=== PATIENT | female | born 1930 | race Caucasian/White ===

== ENCOUNTER 2017-09-08 15:33 | Inpatient (IN) | payer MEDICARE, OTHER ==
[~2017-09-08] VITALS: Ht 167.6 cm; Wt 61.2 kg
[2017-09-08 15:34] VITALS: BP 196/85
[2017-09-08 15:55] LABS: ABSOLUTE EOSINOPHILS 0.1 thou/uL (0.0-0.7); ABSOLUTE LYMPHOCYTES 1.8 thou/uL (0.8-5.3); ABSOLUTE MONOCYTES 0.7 thou/uL (0.0-1.2); ABSOLUTE NEUTROPHILS 4.3 thou/uL (1.6-8.1); BASOPHILS 0.7 %; EOSINOPHILS 0.9 %; HEMATOCRIT 41.9 % (37.0-47.0); LYMPHOCYTES 26.3 %; MCH 30.4 pg (26.0-34.0); MCHC 33.4 g/dL (28.0-37.0); MCV 90.9 fL (80.0-100.0); MONOCYTES 9.6 %; NUCLEATED RBCS 0 /100WBC; PLATELET COUNT* 196 thou/uL (150-400); POLYS 62.5 %; RBC 4.61 mil/uL (4.20-5.00); RDW-CV 14.6 % (10.5-14.5); WBC 6.9 thou/uL (4.0-11.0)
[2017-09-08 16:05] LABS: ANION GAP 6 mmol/L (7-16); BUN 20 mg/dL (7-18); CALCIUM 8.2 mg/dL (8.5-10.1); CHLORIDE 100 mmol/L (98-107); CO2 29 mmol/L (21-32); GLUCOSE 111 mg/dL (70-99); POTASSIUM 3.8 mmol/L (3.5-5.1); SODIUM 135 mmol/L (136-145)
[2017-09-08 16:12] LABS: ALBUMIN 3.5 g/dL (3.4-5.0); ALKALINE PHOSPHATASE 86 U/L (46-116); SGOT 26 U/L (15-37); SGPT 30 U/L (30-65); TOTAL BILIRUBIN 0.4 mg/dL (<0.1-1.0); TOTAL PROTEIN 7.3 g/dL (6.4-8.2); TROPONIN-I LEVEL <0.06 ng/mL (<0.06)
[2017-09-08 16:17] LABS: APTT 28.5 Seconds (25.0-31.3); PROTIME 9.9 Seconds (9.20-11.50)
[2017-09-08] MEDS ORDERED: ASPIRIN81 M2 PO (16:35)
[2017-09-08] MEDS ORDERED: IMDUR 30 MG TAB30 M1 PO (16:35)
[2017-09-08] MEDS ORDERED: CRESTOR10 MG PO (16:35)
[2017-09-08] MEDS ORDERED: COZAAR 25 MG TA25 M1 PO (16:35)
[2017-09-08] MEDS ORDERED: TOPROL XL25 MG PO (16:35)
[2017-09-08] MEDS ORDERED: TUMS PO (16:36)
[2017-09-08] MEDS ORDERED: BIOTIN1 M1 PO (16:36)
[2017-09-08] MEDS ORDERED: B-COMPLEX TABL0.4 MG PO (16:36)
[2017-09-08] MEDS ORDERED: FEMARA2.5 MG PO (16:36)
[2017-09-08 17:18] VITALS: BP 197/90
[2017-09-08 21:00] VITALS: BP 129/45
[2017-09-08 23:47] VITALS: BP 108/54
[2017-09-09 04:20] VITALS: BP 103/40
--- NOTE | 2017-09-09 07:47 | NUR ---
PATIENT ARRIVED ON FLOOR FROM PACU AT ABOUT 2039. PATIENT ADMISSION HISTORY AND ASSESSMENT WAS COMPLETED CHARTED. IV FLUIDS WERE STARTED AT 80 ML/HR. PATIENT WAS PLACED ON OXYGEN AT 2L PER NASAL CANNULA AFTER DESATTING TO 88% AFTER GIVEN IV DILAUDID FOR PAIN. PATIENT IS NOW 98-99% ON 2L PER NASAL CANNULA. PATIENT WAS GIVEN PAIN MEDICINE THREE TIMES THIS SHIFT. DRESSING TO RIGHT HIP REMAINS INTACT. FAMILY REMAINS AT BEDSIDE. WILL CONTINUE TO MONITOR.
[2017-09-09 07:59] LABS: HEMATOCRIT 27.4 % (37.0-47.0); HEMOGLOBIN 9.2 gm/dL (12.0-15.0); MCH 30.7 pg (26.0-34.0); MCHC 33.6 g/dL (28.0-37.0); MCV 91.5 fL (80.0-100.0); MPV 8.1 fl. (7.2-11.1); NUCLEATED RBCS 0 /100WBC; PLATELET COUNT* 141 thou/uL (150-400); RBC 2.99 mil/uL (4.20-5.00); RDW-CV 14.7 % (10.5-14.5); WBC 9.2 thou/uL (4.0-11.0)
[2017-09-09 08:10] VITALS: BP 108/51
[2017-09-09 08:13] LABS: CALCIUM 7.3 mg/dL (8.5-10.1); POTASSIUM 4.3 mmol/L (3.5-5.1)
[2017-09-09 08:43] LABS: ABSOLUTE LYMPHOCYTES 0.8 thou/uL (0.8-5.3); ABSOLUTE MONOCYTES 0.7 thou/uL (0.0-1.2); ABSOLUTE NEUTROPHILS 7.6 thou/uL (1.6-8.1); PLATELET ESTIMATE ADEQUATE
[2017-09-09 12:04] LABS: URINE BILIRUBIN NEGATIVE (Negative); URINE BLOOD 1+ (Negative); URINE CLARITY CLEAR; URINE COLOR YELLOW; URINE GLUCOSE-RANDOM NEGATIVE (Negative); URINE KETONES NEGATIVE (Negative); URINE LEUKOCYTES-REFLEX 1+ (Negative); URINE NITRITE-REFLEX NEGATIVE (Negative); URINE PROTEIN NEGATIVE (Negative); URINE UROBILINOGEN 0.2 E.U./dl (0.2-1.0)
[2017-09-09 12:06] VITALS: BP 120/40
[2017-09-09 12:15] LABS: CASTS None Seen /LPF (None Seen); CRYSTALS None Seen /LPF (None Seen); SQUAMOUS 0-3 Few /LPF (0-3); URINE RBC 3-10 Few /HPF (0-2)
[2017-09-09 12:16] LABS: BACTERIA-REFLEX None Seen /HPF (None Seen)
[2017-09-09 16:00] VITALS: BP 126/42
--- NOTE | 2017-09-09 18:25 | NUR ---
PATIENT HAS BEEN A/O X 4, MUCH MORE AWAKE AND ALERT THIS AFTERNOON. MEDICATED FOR RIGHT HIP PAIN WITH ORAL OXY IR AND HYDROCODONE WITH RELIEF. PATIENT TURNED EVERY 2 HOURS AND HEELS ELEVATED. SCDS IN PLACE. DRESSINGS TO RIGHT HIP INTACT. PATIENT'S CONTINUOUS SAT MONITOR DC'D AND I.S. GIVEN TO PATIENT AND ENCOURAGED. PATIENT'S APPETITE POOR, ENCOURAGED SUPPLEMENTS AND FOODS PATIENT PREFERS. PATIENT DANGLED ON SIDE OF BED THIS AFTERNOON FOR SHORT AMOUNT OF TIME. O2 REMAINS IN PLACE AT 2L/NC. BENITEZ REMAINS IN PLACE. IV FLUIDS TO BE SALINE LOCKED AFTER CURRENT BAG IS FINISHED. MULTIPLE FAMILY MEMBERS HERE TO VISIT. HOURLY ROUNDING COMPLETED, FALL PRECAUTIONS IN PLACE. CALL LIGHT WITHIN REACH. WILL CONTINUE WITH PLAN OF CARE.
[2017-09-09 19:47] VITALS: BP 120/54
[2017-09-10 04:10] LABS: ABSOLUTE EOSINOPHILS 0.1 thou/uL (0.0-0.7); ABSOLUTE LYMPHOCYTES 1.6 thou/uL (0.8-5.3); ABSOLUTE MONOCYTES 1.1 thou/uL (0.0-1.2); ABSOLUTE NEUTROPHILS 5.8 thou/uL (1.6-8.1); BASOPHILS 0.3 %; EOSINOPHILS 0.9 %; HEMATOCRIT 24.5 % (37.0-47.0); HEMOGLOBIN 8.3 gm/dL (12.0-15.0); LYMPHOCYTES 18.5 %; MCH 31.1 pg (26.0-34.0); MCHC 33.8 g/dL (28.0-37.0); MONOCYTES 12.5 %; MPV 8.3 fl. (7.2-11.1); NUCLEATED RBCS 0 /100WBC; PLATELET COUNT* 123 thou/uL (150-400); POLYS 67.8 %; RBC 2.67 mil/uL (4.20-5.00); RDW-CV 14.2 % (10.5-14.5); WBC 8.6 thou/uL (4.0-11.0)
[2017-09-10 04:30] LABS: ALBUMIN 2.4 g/dL (3.4-5.0); CALCIUM 7.5 mg/dL (8.5-10.1); CREATININE 0.7 mg/dL (0.6-1.3); POTASSIUM 4.5 mmol/L (3.5-5.1); TOTAL BILIRUBIN 0.7 mg/dL (<0.1-1.0); TOTAL PROTEIN 5.2 g/dL (6.4-8.2)
--- NOTE | 2017-09-10 06:22 | NUR ---
ASSESSMENT COMPLETE. PT SLEPT THROUGH THE NIGHT WITHOUT ANY CONCERNS. PRN PAIN MEDICATIONS GIVEN NEEDED WITH RELIEF REPORTED. PT IS VERY HARD OF HEARING. DRESSING TO RIGHT HIP/LEG C/D/I. PT TURNED Q2 FOR SKIN INTEGRITY. PT GIVEN MIRILAX AT HS PER REQUEST, NO BM DURING THE NIGHT. PT HAS BENITEZ IN PLACE. PT HAS IV IN RIGHT FOREARM, SALINE LOCKED. PT IS FALL RISK, BED ALARM ON. SEE ASSESSMENT AND VITALS FOR OTHER DETAILS. CALL LIGHT WITHIN REACH, WILL CONTINUE TO MONITOR
[2017-09-10 08:10] VITALS: BP 159/57
[2017-09-10 09:20] VITALS: BP 151/49
--- NOTE | 2017-09-10 09:45 | NUR ---
PATIENT DROWSY AND CONFUSED TO WHERE SHE IS THIS AM. PATIENT'S VITALS STABLE. DR ALBERT PAGED REGARDING CHANGE IN CONDITION. PATIENT'S DAUGHTER AT BEDSIDE. DR ALBERT RETURNED CALL AND ORDERS NOTED. UPDATED PATIENT'S FAMILY.
--- NOTE | 2017-09-10 10:37 | NUR ---
PATIENT TAKEN FOR CT OF HEAD AT THIS TIME. PAGED DR ALBERT TO GIVE RESULTS. AWAITING RETURN CALL.
--- NOTE | 2017-09-10 13:09 | EKG ---
[place] [address] ELECTROCARDIOGRAM REPORT Name: RAEGAN LEON Room: [address] ADM IN .R.#: [id number] Admission: 09/08/17 Attend Phys: Ravinder Holcomb MD Discharge: Date of : 34 Report #: [id number] THIS REPORT FOR: //name// [facility] ED Test Date: 2017-09-08 Test Time: 15:50:58 Pat Name: RAEGAN LEON Department: Room: [facility] Gender: F Sales Center Associate: Estephania ARCE : 1930 Requested By: Erasmo Shin Order Number: [id number] MD: Samuel Ferrari Measurements Intervals [place] Rate: 67 P: -46 IN: 177 QRS: 8 QRSD: 145 T: 121 QT: 460 QTc: 486 Interpretive Statements Sinus or ectopic atrial rhythm Ventricular premature complex Left bundle branch block Baseline wander in lead(s) II Compared to ECG 12/26/2007 08:20:48 Ventricular premature complex(es) now present Electronically Signed On 09-10-2017 13:09:22 UNPAID INTERN by Samuel Ferrari [email or web address] <ELECTRONICALLY SIGNED> By: Samuel Ferrari MD, FACC 09/10/17 1309 1550 1550 Samuel Ferrari MD, [facility] /EPI
--- NOTE | 2017-09-10 13:45 | NUR ---
PATIENT MORE AWAKE THAN EARLIER THIS AM. STILL HAS COMPLAINTS OF GENERALIZED PAIN. ATTEMPTED TO WORK WITH PHYSICAL THERAPY THIS AFTERNOON. PATIENT RESTING QUIETLY IN BED AT THIS TIME. WILL CONTINUE WITH PLAN OF CARE.
--- NOTE | 2017-09-10 14:05 | NUR ---
REPORT CALLED TO GUILHERME SPICER WHO WILL BE ASSUMING CARE OF PATIENT. PATIENT TO BE TRANSFERRED TO ROOM 116.
--- NOTE | 2017-09-10 15:10 | NUR ---
PATIENT TRANSFERRED TO ROOM 116 VIA BED AT THIS TIME WITH ALL BELONGINGS. PATIENT'S DAUGHTER ACCOMPANIED PATIENT TO NEW ROOM. PATIENT MORE AWAKE AT THIS TIME.
[2017-09-10 16:00] VITALS: BP 148/44
--- NOTE | 2017-09-10 17:58 | NUR ---
PATIENT ARRIVED TO UNIT AT 1500. ALERT AND ORIENTED X1. IS COMPLAINING OF PAIN AT THIS TIME. AGREE WITH PREVIOUS NURSES CHARTING.
--- NOTE | 2017-09-10 18:00 | NUR ---
ALERT AND ORIENTED X1. PAIN BEING MANAGED WITH PO PAIN MEDICATION. DENIES NAUSEA. IV IS PATENT AND INFUSING. ATTENDED THERAPIES THIS SHIFT. VSS ON ROOM AIR. HOURLY ROUNDS HAVE BEEN MAINTAINED SINCE ARRIVING ON UNIT. CALL LIGHT IS WITHIN REACH. DAUGHTER IS AT BEDSIDE. NURSING WILL CONTINUE TO MONITOR.
[2017-09-10 20:00] VITALS: BP 163/61
[2017-09-11] VITALS (7 sets, daily range): BP systolic 122–168; BP diastolic 45–68
[2017-09-11 05:29] LABS: ABSOLUTE MONOCYTES 1.1 thou/uL (0.0-1.2); ABSOLUTE NEUTROPHILS 8.2 thou/uL (1.6-8.1); BASOPHILS 0.2 %; EOSINOPHILS 0.1 %; HEMATOCRIT 20.9 % (37.0-47.0); HEMOGLOBIN 7.2 gm/dL (12.0-15.0); MCH 31.6 pg (26.0-34.0); MCHC 34.7 g/dL (28.0-37.0); MCV 91.2 fL (80.0-100.0); MONOCYTES 10.3 %; MPV 8.3 fl. (7.2-11.1); NUCLEATED RBCS 0 /100WBC; PLATELET COUNT* 117 thou/uL (150-400); POLYS 79.4 %; RBC 2.29 mil/uL (4.20-5.00); RDW-CV 13.8 % (10.5-14.5); WBC 10.3 thou/uL (4.0-11.0)
[2017-09-11 05:33] LABS: PREALBUMIN 10.9 mg/dL (18.0-35.7)
[2017-09-11 05:55] LABS: ALBUMIN 2.3 g/dL (3.4-5.0); CREATININE 0.5 mg/dL (0.6-1.3); MAGNESIUM 1.7 mg/dL (1.8-2.4); POTASSIUM 4.2 mmol/L (3.5-5.1); TOTAL BILIRUBIN 0.8 mg/dL (<0.1-1.0); TOTAL PROTEIN 5.3 g/dL (6.4-8.2)
--- NOTE | 2017-09-11 06:41 | NUR ---
PATIENT IS STILL SHOWING CONFUSION DURING SHIFT AND HAS BEEN RESTLESS AT NIGHT. VSS, ALTHOUGH BP IS ELEVATED. DAUGHTER IS AT BEDSIDE. ORAL PAIN MEDICATION HAS BEEN GIVEN PRN ORDERED FOR C/O PAIN AND CHARTED. IV IN RIGHT FOREARM-NS @ 70ML/HR. DRESSING TO RIGHT HIP IS C/D/I, SCDS' AND ZHEN HOSE IN PLACE. BENITEZ TO DEPENDENT DRAINAGE WITH CLEAR/YELLOW COLORED URINE OUTPUT. HGB AND HCT LOW AND DR. HOGUE NOTIFIED VIA YOUCALLMD THIS AM. NO NEW ORDERS AT THIS TIME. FALL PRECAUTIONS IN PLACE. HOURLY ROUNDS MADE. WILL CONTINUE WITH PLAN OF CARE AND NURSING TO MONITOR.
--- NOTE | 2017-09-11 11:48 | NUR ---
PT.UP IN RECLINER. VERY SLEEPY. LOOKS AT YOU BUT DOESN'T SAY ANYTHING. DAUGHTER, CODI, HERE. SHE SAID THEY ALL MAKE DECISIONS FOR THE PT. 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 PT.NODS HEAD ABOUT SNF. GAVE DAUGHTER A LIST OF SNFS THAT SHE CAN GO TO. SHE SAID SHE WILL CALL HER SISTERS, WELL HER DAD AND LET CM KNOW, WHICH ONE THEY CHOSE.
--- NOTE | 2017-09-11 13:13 | S ---
[place] [address] SURGICAL PATH RPT PROCEDURE Name: RAEGAN LEON Room: [address] IN M.R.#: [id number] Admission: 09/08/17 Date of : 34 Discharge: Report #: [id number] Path Case #: [id number] PATHOLOGY REPORT COLLECTION DATE: 09/08/2017 RECEIVED DATE: 09/10/2017 SUBMITTING PHYS: Erick Khan D.O. OTHER PHYS: Dr. Ravinder Key SPECIMEN(S) RECEIVED: A.Right femur reamings * * * * * * * * * * * * FINAL DIAGNOSIS: Right femur reamings: - Benign and viable cancellous bone fragments, skeletal muscle, blood and scant benign hematopoietic elements. (CHAPIS:mgr; 09/11/2017) PATHOLOGIST: Baljinder Cyr M.D. REPORT ELECTRONICALLY SIGNED BY: Baljinder Cyr M.D. DATE/TIME: 09/11/2017 13:10 * * * * * * * * * * * * GROSS PATHOLOGY: The specimen is received fresh, labeled "Raegan Tavarez, right femur reamings". Received is a moderate amount of blood coagulum admixed with curettings of light jarrell bone measuring 3.0 x 3.0 x 0.5 cm in aggregate dimensions. The specimen is submitted representatively in cassette A1, following decalcification, to include all bone curettings. (CAA; 09/10/2017) CLINICAL HISTORY: Fractured right hip INITIAL CPT CODE(S): A; 89450, 12640 Professional services performed by [facility] at [facility] [address] [place] [address] Technical services performed by [facility] at [address] [place] [address], [facility] [address] [address]. [address] [address] SURGICAL PATH RPT PROCEDURE Name: RAEGAN LEON Room: [address] IN [facility]#: [id number] Admission: 09/08/17 Date of : 34 Discharge: Report #: [id number] Path Case #: [id number] [facility] [address] [address] PHONE: [phone] DIRECTOR: Surjit Conklin M.D. * * * END OF REPORT * * *
--- NOTE | 2017-09-11 15:00 | NUR ---
HAD PUT IN A REHAB CONSULT ORDER. CM SPOKE WITH LATA. SHE SAID SHE WOULD REVIEW PT.AND CALL CM BACK. SPOKE AGAIN WITH CODI AND PT. SHE SAID THEY ALL CONCUR IF PT.CANNOT GO TO REHAB UNIT, THEY WOULD LIKE [facility]. REFERRAL FAXED TO [facility] [phone].
--- NOTE | 2017-09-11 18:20 | NUR ---
ALERT AND ORIENTED X4. UP WITH MAX ASSIST OF 2-3 WITH WALKER AND GAIT BELT. PAIN BEING MANAGED WITH PO PAIN MEDICATION. DENIES NAUSA. RECIEVE 1 UNIT OF BLOOD THIS EVENING. DRESSING IS C/D/I. VSS ON ROOM AIR. HOURLY ROUNDS HAVE BEEN MAINTAINED THROUGHOUT SHIFT. CALL LIGHT IS WITHIN REACH. NURSING WILL CONTINUE TO MONITOR.
--- NOTE | 2017-09-11 18:27 | NUR ---
RECEIVED CONSULT FOR POSSIBLE REHAB ADMISSION. CONSULT HAS BEEN ACKNOWLEDGED BY COLD PRESS LOADER AND DR. BULLOCK. PT WITH RIGHT HIP FX S/P NAILING. PT WITH POST OP ENCEPHALOAPATHY/CONFUSION. PT WORKING WITH PT/OT SHE IS MAX A TO DEPENDENT WITH OT AND MAX A TO MAX A X2 WITH PT. PT WITH DIFFICULTY FOLLOWING DIRECTIONS DUE TO CONFUSION. HAD BLOOD TRANSFUSION TODAY. WILL FOLLOW ALONG WITH PT TO SEE HOW SHE PROGRESSES WITH THERAPIES AND MEDICALLY TO DETERMINE IF PT WILL BE ABLE TO TOLERATE AND PARTICIPATE IN 3 HOURS OF THERAPY ONCE MEDICALLY STABLE. THANK YOU FOR THIS CONSULT.
[2017-09-11 19:24] LABS: HEMATOCRIT 24.3 % (37.0-47.0); HEMOGLOBIN 8.6 gm/dL (12.0-15.0)
[2017-09-12 04:38] VITALS: BP 154/58
--- NOTE | 2017-09-12 06:09 | NUR ---
PATIENT SLEPT WELL THROUGHOUT THE NIGHT. PAIN SEEMED TO BE WELL CONTROLLED WITH ORAL PAIN MEDICATION. PATIENT DID REMOVE DRESSING TO RIGHT HIP AND NEW MEPILEX DRESSING WITH SIVER WAS APPLIED TO SURGICAL SITE. VSS, ON RA AND AFEBRILE. ALTHOUGH BP ELEVATED. PATIENT STILL HAS SOME CONFUSION AT TIMES, BUT APPEARS TO BE MUCH MORE ALERT AND AWARE OF SURROUNDINGS. BENITEZ TO DEPENDENT DRAINAGE WITH CLEAR/YELLOW URINE OUTPUT. PATIENT'S DAUGHTER AT BEDSIDE. IV IN RIGHT WRIST-SL. FALL PRECAUTIONS IN PLACE. HOURLY ROUNDS MADE. WILL CONTINUE WITH PLAN OF CARE AND NURSING TO MONITOR.
--- NOTE | 2017-09-12 10:21 | NUR ---
CM SPOKE TO DANG, TANDEM MILL STICKER TO DISCUSS ABILITY TO ACCEPT PATIENT TO THE ACUTE INPATIENT REHAB UNIT. DANG INFORMS THAT IF THE PATIENT IS MORE ALERT AND ORIENTED TODAY AND IS ABLE TO PARICIPATE IN PT/OT SHE WILL BE ABLE TO TRNASFER TO INPATIENT REHAB LATER ON TODAY. CM WILL REMAIN AVAILABLE TO ASSIST AND FOLLOW NEEDED.
[2017-09-12 14:05] VITALS: BP 154/56
[2017-09-12 14:08] VITALS: BP 154/56
[2017-09-12] MEDS ORDERED: ENOXAPARIN30 MG/0.1 SUBQ (14:12)
[2017-09-12] MEDS ORDERED: MILK OF MA2400 MG/10 PO (14:13)
[2017-09-12] MEDS ORDERED: OXYCODONE HCL 55 MG PO (14:14)
[2017-09-12] MEDS ORDERED: TRAMADOL 50 MG50 MG PO (14:15)
[2017-09-12 14:16] VITALS: BP 154/56
[2017-09-12] MEDS ORDERED: COLACE100 MG PO (15:40)
[2017-09-12 18:34] VITALS: BP 154/56
--- NOTE | 2017-09-12 18:37 | NUR ---
PATIENT LEFT UNIT AT 1415. ALERT AND ORIENTED X4 AT THIS TIME. CONTINUES TO HAVE OCCASIONAL CONFUSION. PAIN BEING MANAGED WITH PO PAIN MEDICATION. IV DC'D. NAUSEA MANAGED WITH IV NAUSEA MEDICATION. ALL PERSONAL ITEMS LEFT WITH PATIENT. DISCHARGE INSTRUCTIONS SENT WITH PATIENT TO REHAB. VSS ON ROOM AIR. HOURLY ROUNDS HAVE BEEN MAINTAINED THROUGHOUT SHIFT. CALL LIGHT IS WITHIN REACH. NURSING WILL CONTINUE TO MONITOR.
--- NOTE | 2017-10-22 09:55 | OP ---
[address] [address] OPERATIVE REPORT Name: RAEGAN LEON Room: [address] IN M.R.#: [id number] Admission: 09/08/17 Attend Phys: Ravinder Holcomb MD Discharge: 09/12/17 Date of : 34 Report #: [id number] THIS REPORT FOR: //name// CC: Ravinder Key DATE OF SERVICE: 09/08/2017 PREOPERATIVE DIAGNOSES: 1. Right intertrochanteric femur fracture. 2. History of breast cancer. POSTOPERATIVE DIAGNOSES: 1. Right intertrochanteric femur fracture. 2. History of breast cancer. PROCEDURE: Closed reduction and cephalomedullary nailing of right intertrochanteric femur fracture. SURGEON: Erick Khan D.O. TRIM SAWYER: 1. Yassine Jeffrey DO 2. Bo Baird DO. ANESTHESIA: General. ANTIBIOTICS: Weight-appropriate dosing of Ancef IV preoperatively. ESTIMATED BLOOD LOSS: 150 mL. COMPLICATIONS: None. SPECIMENS: Femoral reamings from shaft and femoral intertrochanteric region, neck and head. DRAINS: None. CONDITION: The patient is stable to PACU. IMPLANTS: [place] gamma nail, 11 x 380 mm x 125 degree with 90 mm lag screw and 47.5 mm x 5 mm distal interlock screw. INDICATIONS FOR PROCEDURE: The patient is an 87-year-old female who presented to [facility] Emergency Department after a fall from standing height. She was at her house where she lives with her , their daughter [address] [place] [address] OPERATIVE REPORT Name: RAEGAN LEON Soo Room: [address] IN .R.#: [id number] Admission: 09/08/17 Attend Phys: Ravinder Holcomb MD Discharge: 09/12/17 Date of : 34 Report #: [id number] oftentimes stays with them, family members were over and the kids had toys there, she tripped over them and fell. She had immediate pain in her hip and inability to ambulate, ambulance was called and she was brought here. This unfortunately is her birthday, she is very hard of hearing, a lot of conversation takes place talking right at her ear level and also through coordinating with her daughter who seems to have an easier time relaying information to her that I needed. Her daughter is a nurse and is her medical power of commercial real estate attorney. She is having significant pain in her groin, only thing that helps is the medication she has received from the ER and not moving, any movement does produce pain. She rates the pain as 10/10 when that is worse. She denies any radiation, tingling or numbness. I asked if there was any prodromal pain, they said no. She is quite active. Her daughter says she walks around the house without an assistive device. In reviewing her medical chart and asking about her past medical condition, she does have a history of breast cancer and that we will likely be sending off a specimen to make sure that it is not a pathological fracture. She did have a mechanical fall explaining her hip fracture. We had a long conversation going over our recommendation for operative treatment, nonoperative management would involve prolonged bed rest. I would not recommend this do to sequela as I believe it would lead to significant functional limitations if not significantly adverse events from the prolonged bed rest. Since she is clearly an ambulator without assistive device, my recommendation would be for operative fixation of her right intertrochanteric femur fracture. The risks of the surgery include but are not limited to infection that could require surgical treatment, long-term antibiotics and their sequela of end-organ damage, C. difficile colitis, and resistance, wound healing complications, neurovascular injuries that could be permanent, limb and life-threatening, continuing of pain, worsening of pain, decreased function compared to pre-injury function, this could involve the loss of independent ambulation or loss of ability to live independently, malunion, nonunion, failure of bone, failure of implant could involve jayleen screw cut out. There is the possibility of need for further intervention or surgery for any reason and that include proximal femoral replacement, DVT, PE, NE, stroke, possible , anesthetic related complication will be addressed by the anesthesia team prior to surgery. There is also possibility of intangibles and unforeseen complications that would be addressed upon presentation. After answering any and all questions that her and her family had, they acknowledged and accepted the risks of surgery. They do wish to proceed. We obtained verbal and written consent. I also had her daughter who has power of commercial real estate attorney sign as well, the patient is quite hard of hearing. DESCRIPTION OF PROCEDURE: In the presence of the operative team members as well as family, I asked which side was correct, they confirmed the right and marked that extremity and everyone agreed. She was then transferred to the operative suite where we performed a briefing confirming correct patient, procedure, site, antibiotics and that all implants needed were present sterile. All members agreed. General anesthetic was administered. She was then transferred over to [address] [address] OPERATIVE REPORT Name: RAEGAN LEON Room: [address]#: [id number] Admission: 09/08/17 Attend Phys: Ravinder Holcomb MD Discharge: 09/12/17 Date of : 32 Report #: [id number] the operative [place] table. She was well padded and well secured to the table and it was used to aid in fracture reduction by performing traction, slight abduction and internal rotation and then gentle adduction. We brought in C-arm imaging. Fine tuned our reduction using the table. Once we confirmed our reduction on multiple planar images, we then sterilely prepped and draped the right lower extremity in usual fashion. We then performed an official timeout indicating correct patient, procedure, site and antibiotics. All members agreed. We used the C-arm to wolf our landmarks, 10 blade scalpel proximally through skin just through fascia, blunt dissection down to the greater trochanter. A guidewire was inserted and confirmed to be in appropriate position on AP and lateral and advanced. We reamed over this guidewire and confirmed on AP and lateral that our reamer was in the appropriate trajectory and guidewire in appropriate position. A long nail will be used and will be imperative to have an appropriate starting point, so that the vy would not be too anterior or posterior to cortex. We then inserted our ball-tipped guidewire, advanced this down to the superior pole of the patella and the size was measured to be 380 mm. We therefore, chose a 380 x 11 x 125 degree gamma nail. We only reamed to the isthmus, not going any further. We saved those reamings and placed them in a specimen cup to be sent to Pathology. We then inserted our nail. She is quite osteoporotic not only on x-rays but also when reaming to the bone, there is very little resistance. We therefore inserted the gamma nail over the guidewire. We removed the guidewire once we were in bone. We then advanced the C-arm down to the knee and in the lateral position. Once we could start getting it down into the aspect of the knee, we slowly advanced the gamma nail manually and with gentle taps with the mallet confirming that we were not causing any distraction or fracture on the lateral image and also on the AP image looking back and forth. Once we had well seated nail just to the superior aspect of the patella and appropriate position and we had not caused any iatrogenic fracture, we then brought C-arm back proximally. We then made an incision for our double sleeve for the lag screw, made sure this was flush on to bone, I inserted the guidewire and confirmed that the guidewire was in at appropriate position on the AP where it was low in the neck and center on the head; on the lateral was just slightly posterior in the femoral head and center on the neck. This was appropriate in position and our tip apex distance would be less than 25 mm. We then measured, drilled and placed the appropriately 90 mm lag screw. We then engaged the setscrew and backed off 1 quarter turn confirming that our set screw was fully engaged by trying to turn the lag screwdriver handle and we could not. At that point in time, we then removed all instrumentation externally. Saved final C-arm images proximally. Fracture reduction was excellent, hardware position was excellent. We then took the C-arm distally performed perfect nightmute and then placed scalpel through skin and then drilled and placed a 5 mm screw into the static interlocking slot. Saved those images both AP and lateral, confirming its appropriate position. All hardware was in position at that time, we dismissed C-arm, thoroughly irrigated the incisions with normal saline. Proximally, the incisions were closed with 0 Vicryl deep to reapproximate the fascia, 2-[address] [address] OPERATIVE REPORT Name: RAEGAN LEON Room: [address]#: [id number] Admission: 09/08/17 Attend Phys: Ravinder Holcomb MD Discharge: 09/12/17 Date of : 32 Report #: [id number] Monocryl buried deep subcutaneous and divina, distally the incision was closed with 2-0 Monocryl buried deep in subcutaneous. The distal incision was closed with 2-0 Monocryl buried deep and divina. We placed sterile dressings that involved the Mepilex AG dressing. At that point in time, we performed an operative debriefing where we confirmed the procedure as stated. No complications and that all counts were correct and final. Everyone agreed. She was successfully extubated and transferred off the operative table and taken to PACU in stable condition. POSTOPERATIVE COURSE AND EVALUATION: I updated her family that she was doing well and resting in PACU, went over the surgical images with them and I addressed any questions and concerns that they had. On my exam of her in the PACU area, again she is quite limited in her hearing. She was stable. She had palpable pedal pulse, right lower extremity. All compartments were soft. Dressings intact and she was wiggling her toes, plantar flexing and dorsiflexing her ankle and moving at the knee. She will be admitted, we will be following the reamings closely for pathology. DVT prophylaxis will be with Lovenox. Pain control will be switching to orals as soon as possible, therapy to begin as soon as possible as well and she will be weightbear as tolerated. <ELECTRONICALLY SIGNED> By: Erick Khan DO 10/22/17 0955 2056 [id number] Khan DO /carlos
--- NOTE | 2017-11-06 13:45 | CON ---
[address] [address] CONSULTATION Name: RAEGAN LEON Room: [address] IN M.R.#: [id number] Admission: 09/08/17 Attend Phys: Ravinder Holcomb MD Discharge: 09/12/17 Date of : 32 Report #: [id number] THIS REPORT FOR: //name// CC: Ravinder Key REASON FOR CONSULTATION: Evaluation and recommendations regarding post-acute rehabilitation in an 87-year-old female status post right hip fracture. It should be noted that consultation was acknowledged. The patient was screened and ultimately admitted to Acute Inpatient Rehabilitation and full consultation was not completed due to the timing of the admission. <ELECTRONICALLY SIGNED> By: Sally Cuevas DO 11/06/17 1345 1536 [id number] Cuevas DO /nt
== END 2017-09-12 14:28 | DRG 480 ==
LOC: M.ERS 15:33 → M.3W 16:27 → M.TBA-ER 16:27 → M.3W 20:48 → M.ORTHSURG 09-10 15:11
PROVIDERS: Family Medicine; Orthopaedic Surgery; ADMIT Internal Medicine
PROC: 0QS606Z Reposition Right Upper Femur with Intramedullary Internal Fixation Device, Open Approach (ICD-10-PCS; principal; 2017-09-08)
PROC: 30233N1 Transfusion of Nonautologous Red Blood Cells into Peripheral Vein, Percutaneous Approach (ICD-10-PCS; 2017-09-11)
DX: M80.051A Age-related osteoporosis with current pathological fracture, right femur, initial encounter for fracture (principal); G92 Toxic encephalopathy; E87.1 Hypo-osmolality and hyponatremia; D62 Acute posthemorrhagic anemia; I10 Essential (primary) hypertension; E78.5 Hyperlipidemia, unspecified; I25.10 Atherosclerotic heart disease of native coronary artery without angina pectoris; Z79.82 Long term (current) use of aspirin; Z79.899 Other long term (current) drug therapy; Z85.3 Personal history of malignant neoplasm of breast; Z87.891 Personal history of nicotine dependence; Z88.6 Allergy status to analgesic agent

== ENCOUNTER 2017-09-12 13:21 | Inpatient (IN) | payer MEDICARE, OTHER ==
[~2017-09-12] VITALS: Ht 165.1 cm; Wt 58.5 kg
[~2017-09-12 13:21] MED LIST: ASPIRIN81 M2 PO; B-COMPLEX TABL0.4 MG PO; BIOTIN1 M1 PO; COZAAR 25 MG TA25 M1 PO; CRESTOR10 MG PO; FEMARA2.5 MG PO; IMDUR 30 MG TAB30 M1 PO; TOPROL XL25 MG PO; TUMS PO
[2017-09-12] MEDS ORDERED: ENOXAPARIN30 MG/0.1 SUBQ (14:12)
[2017-09-12] MEDS ORDERED: MILK OF MA2400 MG/10 PO (14:13)
[2017-09-12] MEDS ORDERED: OXYCODONE HCL 55 MG PO (14:14)
[2017-09-12] MEDS ORDERED: TRAMADOL 50 MG50 MG PO (14:15)
[2017-09-12] MEDS ORDERED: COLACE100 MG PO (15:40)
--- NOTE | 2017-09-12 16:17 | NUR ---
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 TO BRING IN BATTERIES TOMORROW FOR HEARING AIDS.PT SITTING IN RECLINER WITH LEGS ELEVATED. PT DENIES PAIN AT PRESENT. DRESING TO RT. HIP INTACT WITH MIN SEROUS DRAINAGE NOTED. BENITEZ TO DD WITH CLEAR YELLOW URINE NOTED.PT IS PLESANT BUT FORGETFULL,EASILY REORIENTATED.
[2017-09-12 21:56] VITALS: BP 133/48
[2017-09-13 04:06] LABS: HEMATOCRIT 21.8 % (37.0-47.0); HEMOGLOBIN 7.5 gm/dL (12.0-15.0); MCH 32.1 pg (26.0-34.0); MCHC 34.6 g/dL (28.0-37.0); MCV 92.9 fL (80.0-100.0); MPV 8.1 fl. (7.2-11.1); RBC 2.35 mil/uL (4.20-5.00); RDW-CV 13.8 % (10.5-14.5); WBC 8.3 thou/uL (4.0-11.0)
[2017-09-13 04:20] LABS: CALCIUM 7.4 mg/dL (8.5-10.1); CREATININE 0.6 mg/dL (0.6-1.3); POTASSIUM 4.1 mmol/L (3.5-5.1)
--- NOTE | 2017-09-13 05:17 | NUR ---
ASSUMED CARES AT 1920. PT ALERT AND ORIENTED. PLEASANT BUT CAN BE FORGETFUL AND CONFUSED. VERY [place]. S/P RIGHT HIP FRACTURE. RIGHT HIP/LEG INCISION SITES X 2 ARE INTACT. WBAT RLE. RLE EDEMA. TAKES PILLS WHOLE WITHOUT ISSUES. TYLENOL AND TRAMADOL GIVEN FOR PAIN. MIRALAX GIVEN. BENITEZ CATHETER DD WINIFRED URINE. SLEPT WELL OTHERWISE. DID NOT GET OUT OF BED DURING THE NIGHT. DAUGHTER STAYED OVERNIGHT. CALL LIGHT IN REACH. BED ALARM ON.
[2017-09-13 07:50] VITALS: BP 153/55
--- NOTE | 2017-09-13 10:13 | NUR ---
Nutrition: Pt admitted to rehab s/p hip FX. H/o CAD, HTN, YOMBA SHOSHONE. Pt is forgetful. Eating 100% of Regular diet. Wt 135#. Albumin 2.3, prealb 9.5. Pt is at low risk. Will follow labs, protein weekly.
[2017-09-13 16:17] LABS: URINE BILIRUBIN NEGATIVE (Negative); URINE BLOOD 2+ (Negative); URINE CLARITY CLEAR; URINE COLOR YELLOW; URINE GLUCOSE-RANDOM NEGATIVE (Negative); URINE KETONES NEGATIVE (Negative); URINE PROTEIN NEGATIVE (Negative); URINE SPECIFIC GRAVITY 1.015 (1.005-1.030)
[2017-09-13 16:20] LABS: URINE LEUKOCYTES-REFLEX 3+ (Negative); URINE NITRITE-REFLEX POSITIVE (Negative)
[2017-09-13 16:23] LABS: BACTERIA-REFLEX >30 Many /HPF (None Seen); CASTS None Seen /LPF (None Seen); CRYSTALS None Seen /LPF (None Seen); MUCUS 0-3 Light strn/LPF (None Seen); SQUAMOUS 0-3 Few /LPF (0-3); URINE RBC 3-10 Few /HPF (0-2); URINE WBC-REFLEX >25 Many /HPF (0-5)
--- NOTE | 2017-09-13 16:29 | NUR ---
SW met with pt to complete initial assessment, introduce self, and SW role on rehab unit. Pt alert and oriented although sleepy. Pt dtr Irina was present. Pt has a dtr Meliza [phone] and a dtr Radha who are all 3 supportive. Pt has 7 grandkids and 19 great grandchildren. Pt lives at home with her who is on hopsice care due to kidney issues. Pt was independent prior to hospital stay, no DME, no history of HH or SNF. SW to continue to follow to assist with safe dc planning.
--- NOTE | 2017-09-13 16:59 | NUR ---
PT HAS AMBULATED WITH BATHROOM AND VOIDED ON COMMODE WITH US SENT TO LAB. PT AMBULATES WITH WALKER,GAITBELT AND 1 ASSIST WITH QUEING. DRESSING TO RT. HIP DRY AND INTACT. PT ALERT BUT FORGETFULL AND IS [place]. PRN FOR PAIN GIVEN WITH FAIR EFFCT. NARCOTICS CAUSE SLEEPINESS AND CONFUSION, TRAMADOL GIVEN X1 TODAY. DAUGHTER AT BEDSIDE AND IS HELPFULL. PT PROGRESSES TOWARDS GOALS AND HOURLY ROUNDING CONTINUES.
[2017-09-13 20:22] VITALS: BP 148/49
--- NOTE | 2017-09-13 22:39 | NUR ---
ASSUMED CARE AT 1930. PATIENT S/P RT HIP FX, ORIF WITH NAILING 09/08/17. WAS IN CHAIR AT BEGINNING OF SHIFT, ASSISTED WITH HS CARES. VOIDED PER TOILET. AMB WITH ONE ASSIST, GAIT BELT, WALKER, CUEING. NEEDS HELP SCOOTING UP IN BED. TURN SHEET USED TO ASSIST WITH PULLING HER UP IN BED. BLANKET ROLL PLACED BETWEEN LEGS TO DECREASE ROTATION AND HEELS OFFLOADED ON PILLOWS. REFUSES TO TURN TO SIDE. VERY STILLAGUAMISH BUT MAKES NEEDS KNOWN. DAUGHTER SPENDING THE NIGHT, ASKED THAT PATIENT GET TRAMADOL AT HS. PATIENT SLEEPING ON ROUND TO ASSESS EFFECTIVENESS. DSSGS TO RT HIP C/D/I. HOURLY ROUNDS CONTINUE. CALL LITE IN REACH. BED ALARM ON.
--- NOTE | 2017-09-14 05:39 | NUR ---
SLEPT MOST OF THE NIGHT EXCEPT TO VOID. SEE MAR FOR PAIN MEDS GIVEN. RETURNS TO SLEEP AFTER GOING TO TOILET. HAS NOT BEEN PULLING BRIEF OR PANTS DOWN FAR ENOUGH TO AVOID URINATING ON THEM WHEN SITING ON TOILET AND WAS INCONTINENT IN HER PAJAMAS AND TWO BRIEFS VOIDING ON FLOOR. PAJAMA BOTTOMS TAKEN OFF AND REPLACED WITH BRIEF AND PUT ON GOWN. SKIN CARE DONE. AMB WITH GAIT BELT, WALKER AND CUEING, BUT IS GETTING BETTER WITH NAVIGATING WALKER IN ROOM. NEEDS HELP GETTING BOTH LEGS INTO BED. BILAT HEELS OFF LOADED ON PILLOW. REFUSES TO TURN TO SIDE. DRESSINGS C/D/I. HOURLY ROUNDS CONTINUE. BED ALARM ON. CALL LITE IN REACH.
[2017-09-14 07:30] VITALS: BP 152/56
[2017-09-14 11:00] VITALS: BP 104/44
[2017-09-14 11:15] VITALS: BP 144/52
--- NOTE | 2017-09-14 16:03 | NUR ---
ASSUMMED CARE OF PT AT 0730, PT ALERT AND ORIENTED, PT TRANSFERS WITH MOD ASSIST OF 1, GB AND WALKER, NEEDS CUEING, WBAT TO RIGHT LEG, DRESSING DRY AND INTACT TO RIGHT LEG, PT BECAME DIZZY WHEN WORKING WITH OT THIS AM, BP 104/44, PT STATED SHE FELT LIGHT HEADED, NAUSEATED, PT RETURNED TO BED BP RECHECKED AND 144/52, PHYSICIAN INFORMED AND ORDER OBTAINED TO RECHECK HGB IN AM, PT WORKED WITH THERAPY AGAIN THIS PM WITH NO DIZZINESS REPORTED. PT COMPLAINED OF PAIN IN RIGHT LEG, MEDICATED PER ORDERS, TAKING FOOD AND FLUIDS WELL, VOID PER TOILET THIS SHIFT, PARTICIPATED IN ALL THERAPIES, HOURLY ROUINDING COMPLETED, ASSESSMENT COMPLETE, WILL CONTINUE TO MONITER.
[2017-09-14 19:04] VITALS: BP 141/50
--- NOTE | 2017-09-14 23:12 | NUR ---
ASSUMED CARE AT 1930. PATIENT S/P RT HIP FX WITH ORIF AND PINNING. WBAT. UP WITH ONE, GAIT BELT, WALKER. NEEDS HELP GETTING OPERATIVE LEG OUT OF BED AND BOTH LEGS INTO BED. AMB WITH SLOW GAIT, NO CUEING NEEDED. ABLE TO DO HYGIENE AND CLOTHING ADJUSTMENTS. WEARING PULLUP BECAUSE OF DISTANCE TO TOILET. VOIDS WINIFRED URINE. TAKES PILLS WHOLE WITH WATER. DRESSINGS TO RIGHT LEG/HIP C/D/I. PATIENT WAS PICKING AT ONE OF THE EDGES OF THE DRESSING, INSTRUCTED NOT TO DO SO. THIS DRESSING WAS REINFORCED WITH OPSITE ALONG THE EDGES LAST NIGHT. APPEARS IN LESS PAIN. DENIES LIGHTHEADNESS WHILE AMBULATING. HEELS OFF LOADED WITH PILLOWS. PREFERS TO SLEEP ON BACK. DAUGHTER SPENDING THE NIGHT. BED ALARM ON. CALL LITE IN REACH. HOURLY ROUNDING CONTINUES.
--- NOTE | 2017-09-15 05:34 | NUR ---
SLEPT ON AND OFF. UP TO VOID PER TOILET WITH ONE, GAIT BELT, WALKER. MEDICATED FOR PAIN TWICE WITH RELIEF. DRESSING STILL C/D/I. PREFERS TO LIE ON BACK BUT DID LIE ON LT SIDE FOR ABOUT [address] IN [address]. HEELS OFF LOADED. HOURLY ROUNDS CONTINUE. CALL LITE IN REACH. BED ALARM ON.
[2017-09-15 07:59] VITALS: BP 167/44
--- NOTE | 2017-09-15 15:38 | NUR ---
PT HAS RESTED IN BED AND SLEPT THIS AFTERNOON WITH DAUGHTER AT SIDE. PRN FOR PAIN GIVEN WITH GOOD EFFECT. DRESSING TO RT. HIP DRY AND INTACT. PT CALLS FOR ASSIST TO BATHROOM AND AMBULATES WITH GAITBELT, WALKER AND ASSIST OF 1. PT IS ALERT AND ORIENTATED AND HAS BILAT HEARING AIDS INPLACE. PT WEARS GLASSES AND HAS OWN TEETH. PT IS ABLE TO ADJUST CLOTHING AND CLEANSE SELF WITH SBA AND EXTRA TIME. PT CONTINENT OF B+B. PT CALLS FOR ASSIST NEEDED.PT CONTINUES TO PROGRESS TOWARDS GOALS AND HOURLY ROUNDING CONTINUES.
[2017-09-15 19:55] VITALS: BP 137/49
--- NOTE | 2017-09-15 23:22 | NUR ---
ASSUMED CARE AT 1930. PATIENT S/P CVA. UP WITH ONE, WBAT, GAIT BELT, WALKER. VOIDS PER TOILET. NEEDS HELP GETTING BOTH LEGS INTO BED. REQUESTED MIRILAX THIS EVENING IN ADDITION TO MORNING DOSE. TURNS WITH ASSIST, REQUESTS SLEEPING ONLY ON BACK, REFUSES TURNS. TAKES PILLS ONE AT A TIME WITH WATER WITHOUT DIFF. DID OWN CARES WITH HER HEARING AIDES. MEDICATED FOR PAIN WITH HS MEDS BUT COULDN'T GET COMFORTABLE, GIVEN APAP. SEE NOV. WAS OBSERVED LYING ON BACK WITH EYES CLOSED AT 2300 ROUNDS. DRESSINGS INTACT. DAUGHTER SPENDING THE NIGHT. HOURLY ROUNDS CONTINUE. BED ALARM ON. CALL LITE IN REACH.
--- NOTE | 2017-09-16 00:29 | NUR ---
ASSUMED CARE AT 1930. PATIENT S/P RT HIP FX WITH PINNING. UP WITH ONE, WBAT, GAIT BELT, WALKER. VOIDS PER TOILET. NEEDS HELP GETTING BOTH LEGS INTO BED. REQUSTED MIRILAX THIS EVEING IN ADDITION TO MORNING DOSE PRIOR. TURNS WITH ASSIST, REQUESTS SLEEPING ONLY ON BACK, REFUSES TURNS. TAKES PILLS ONE AT A TIME WITH WATER WITHOUT DIFF. DID OWN CARES WITH HER HEARING AIDES. MEDICATED FOR PAIN WITH HS MEDS BUT COULDN'T GET COMFORTABLE, LATER GIVEN APAP, SEE NOV. WAS OBSERVED LYING ON BACK WITH EYES CLOSED AT 2300 ROUNDS. DRESSINGS INTACT. DAUGHER SPENDING THE NIGHT. HOURLY ROUNDS CONTINUE, BED ALARM ON. CALL LITE IN REACH.
--- NOTE | 2017-09-16 06:14 | NUR ---
SLEPT MOST OF THE NIGHT AFTER ABOUT 2300 EXCEPT TO VOID. BRIEF HAS SLIGHT AMOUNT OF URINE, CHANGED. HAD LARGE BM THIS AM PER TOILET AND C/O PAIN, AND DIZZINESS. RETURNED TO BED, REQUESTED PAIN MED. THIS GIVEN, SEE MAR. GETTING BETTER AT POSITIONING HIPS IN BED, ESPECIALLY "BRIDGING" AFTER SHE GETS IN BUT NEEDS HELP GETTING HER LEGS INTO THE BED. GIVEN COLD WASH CLOTH ALSO. HOURLY ROUNDS CONTINUE. BED ALARM ON. CALL LITE IN REACH.
[2017-09-16 08:00] VITALS: BP 168/59
--- NOTE | 2017-09-16 17:49 | NUR ---
ASSUMMED CARE OF PT AT 0730, PT ALERT AND ORIENTED, PT TRANSFERS OUT OF BED WITH MOD ASSIST NEEDS HELP GETTING LEGS IN AND OUT OF BED, BUT TRANSFERS FROM CHAIR TO TOILET WITH MIN TO SBA, GB WALKER, PT COMPLAINS OF PAIN IN RIGHT HIP, MEDICATED PER ORDER, UPPER DRESSING TO HIP HAS LARGE AMOUNT GREENISH DRAINAGE, DRESSING CHANGED, INCISION INTACT MUCH BRUISING AROUND INCISION, TAKING FOOD AND FLUIDS WELL, PT AMBULATED TO BATHROOM X3 THIS SHIFT TO VOID, VOIDED IN LARGE AMOUNTS, NEW ORDER NOTED THIS PM TO CHECK RESIDUALS WILL START WITH NEXT VOID, FAMILY STAYS WITH PT MOST OF SHIFT, PT DID NOT HAVE THERAPIES TODAY, PT AND FAMILY REFUSED TO GO TO DININGROOM THIS SHIFT, HOURLY ROUNDING COMPLETED.ASSESSMENT COMPLETE, WILL CONTINUE TO MONITER.
[2017-09-16 20:16] VITALS: BP 118/39
[2017-09-17 04:02] VITALS: BP 147/53
--- NOTE | 2017-09-17 05:02 | NUR ---
ASSUMED PT CARE AT 1930. PT ALERT AND ORIENTED X4, POLITE AND COOPERATIVE WITH CARES. PT DAUGHTER AT BEDSIDE OVERNIGHT. PT UP WITH MOD ASSIST OF ONE, NEEDS ASSIST WITH GETTING LEGS IN AND OUT OF BED. TRANSFERS TO TOILET WITH MIN ASSIST, GAIT BELT AND WALKER. DRESSING TO RIGHT HIP C/D/I. LARGE BRUISE ON RIGHT HIP. UP TO BATHROOM TO VOID X4 THIS SHIFT. BLADDER SCANNED POST VOID, 98 CC AND 183 CC. PT TO BE STRAIGHT CATHED IF RESIDUAL IS OVER 500 CC. PT TAKES PILLS WHOLE WITH WATER WITHOUT DIFFICULTY. CALL LIGHT AND FREQUENTLY USED ITEMS WITHIN REACH. USES CALL LIGHT APPROPRIATELY. HOURLY ROUNDING IN PROGRESS, WILL CONTINUE TO MONITOR.
[2017-09-17 07:00] VITALS: BP 152/66
--- NOTE | 2017-09-17 09:57 | NUR ---
PT HAD REPORTED CHEST DISCOMFORT THIS AM WITH AWARE. EKG AND TRIPONIN LEVELS DONE AND ARE WML. DAUGHTER HERE, GRANDSON AND 2 GREAT GRAND CHILDREN IN ROOM. PT HAD BEEN UP TO RECLINER AND WAS ASSISTED TO BED WITH GAITBELT, WALKER AND MIN ASSIST OF 1. PRN TYLENOL GIVEN WITH FAIR EFFECT. PT DOES NOT WANT STRONGER PAIN MEDICATION DUE TO CAUSING SLEEPINESS. PT HAS VOIDED WELL THIS AM. PT IS ALERT AND ORIENTATED AND WEARS BILAT HEARING AIDS. WILL MONITOR FOR FURTHER CHEST PAIN.
--- NOTE | 2017-09-17 13:47 | EKG ---
[place] [address] ELECTROCARDIOGRAM REPORT Name: RAEGAN LEON Room: [address] ADM IN M.R.#: [id number] Admission: 09/12/17 Attend Phys: Sally Cuevas DO Discharge: Date of : 34 Report #: [id number] THIS REPORT FOR: //name// [facility] Test Date: 2017-09-17 Test Time: 09:33:03 Pat Name: RAEGAN EDWARD Department: Room: [address] Gender: F Medicare Compliance Auditor: 29 : 1930 Requested By: Tutu Rivas Order Number: [id number] Celsa MD: Justin Antunez Measurements Intervals [place] Rate: 78 P: 66 AL: 188 QRS: 46 QRSD: 130 T: 113 QT: 425 QTc: 485 Interpretive Statements Sinus rhythm Left bundle branch block Compared to ECG 09/08/2017 15:50:58 Ectopic atrial rhythm no longer present Ventricular premature complex(es) no longer present Electronically Signed On 09-17-2017 13:47:31 VICTORIAN LITERATURE PROFESSOR by Justin Antunez [email or web address] <ELECTRONICALLY SIGNED> By: Justin Antunez MD, [facility] 09/17/17 1347 0933 0933 Justin Antunez MD, [facility] /EPI
--- NOTE | 2017-09-17 15:25 | NUR ---
pt has participated with therapies and denies any chest pain. prn for rt.hip pain given with fair effect. ice pack placed to rt. hip with good effect. pt ambulates with walker,gaitbelt and min assist of 1. pt calls for assist to bathroom and voids well. pt encouraged to eat meals and drinks boost.pt educated on need for protein to promote healing of rt. hip.pt remains alert and orientated and continent of bowel and bladder. daughter stays with pt and pt continues to progress towards goals. hourly rounding continues.
[2017-09-17 20:55] VITALS: BP 143/52
--- NOTE | 2017-09-18 05:26 | NUR ---
ASSUMED CARES AT 1930. PT ALERT AND ORIENTED X 3. [place]. S/P RIGHT HIP NAILING. DRESSING TO SITE INTACT. WBAT RLE. C/O PAIN TO RIGHT LEG AND BACK. NO FURTHER CHEST PAIN. PAIN MEDS GIVEN PRN. MELATONIN GIVEN PER REQUEST FOR SLEEP. PT SLEPT LITTLE OFF AND ON. SHE IS A MIN ASSIST WITH GAIT BELT AND WALKER. UP TO BATHROOM. PT DOES OWN CARES. PULLUPS. DAUGHTER STAYED OVERNIGHT. USED CALL LIGHT APPROPRIATELY. BED ALARM ON.
[2017-09-18 08:12] VITALS: BP 183/55
--- NOTE | 2017-09-18 14:00 | NUR ---
SW met with pt and two of pt dtrs to review team conference summary. SW explained pt making progress towards goals; team reported pt walked 75 ft with FWW, CGA with toileting and toilet transfer, mod I with grooming, supervision with tub/shower transfer, set up UB dressing and min assist LB dressing, min assist with all cognitive ablilites except mod I with expression. SW discussed team noted pt barriers to be fatigue, pain, weakness, decreased flexibility, and mild anxiety. SW relayed that the plan is for pt to remain on rehab and continue therapies and for team to reassess pt length of stay during team conference next Saturday. Pt and pt family in agreement with plan. SW to continue to follow to assist with safe dc planning.
--- NOTE | 2017-09-18 16:57 | NUR ---
ASSUMED CARE AT 0730 PATIENT ALERT/ORIENTED, PAIN MEDS GIVEN THIS SHIFT WITH MILD RELIEF, PARTICIPATED IN ALL THERAPIES TODAY, BED/CHAIR ALARMS IN PLACE, CALL LIGHT IN REACH, HOURLY ROUNDING COMPLETED, TO DINING ROOM FOR DINNER. DRESSING TO RIGHT HIP C/D/I. CONTINUE WITH CURRENT PLAN OF CARE
[2017-09-18 19:30] VITALS: BP 111/49
--- NOTE | 2017-09-19 05:10 | NUR ---
RECEIVED CALL FROM DAUGHTER AT 0400. PT'S IN HOSPICE AND MAY PASS AWAY SOON. ASKING IF PT CAN HAVE PASS TO GO HOME. SPOKE WITH DAMON YEPEZ FOR HOME PASS DUE TO FAMILY EMERGENCY. TRAMADOL AND APAP GIVEN TO PT FOR RIGHT HIP PAIN. DAUGHTER ARRIVED AT 0500. PT TAKEN VIA W/C BY COMPUTER SYSTEMS DESIGN ANALYST AND WAS ASSISTED INTO CAR. DAUGHTER INFORMED TO CALL NURSE WITH ANY UPDATES.
--- NOTE | 2017-09-19 05:21 | NUR ---
ASSUMED CARES AT 1920. PT ALERT AND ORIENTED. PLEASANT. [place] APACHE. PAIN MEDS WERE GIVEN NEEDED. TAKES PILLS WITHOUT ISSUES. MELATONIN WAS GIVEN FOR SLEEP. SHE IS A MIN ASSIST WITH GAIT BELT AND WALKER. UP TO BATHROOM. PT DOES OWN CARES. WEARS PULLUPS. SLEPT WELL MOST OF THE NIGHT. USED CALL LIGHT APPROPRIATELY. BED ALARM ON.
--- NOTE | 2017-09-19 17:52 | NUR ---
PATIENT RETURNED FROM DAY AT 1615, TYLENOL GIVEN AND PATIENT PLACED IN BED, BED/CHAIR ALARMS IN PLACE, CALL LIGHT IN REACH, THERAPIES ON HOLD TODAY DUE TO PASS, WILL RESUME TOMORROW.
[2017-09-19 19:57] VITALS: BP 152/50
--- NOTE | 2017-09-20 05:01 | NUR ---
ASSUMED CARES AT 1920. PT IN BED. ALERT AND ORIENTED. PLEASANT BUT IS WORRIED ABOUT AND BEING HERE. GRANDDAUGHTER AT BEDSIDE. PAIN MEDS WERE GIVEN FOR RIGHT HIP PAIN. MELATONIN GIVEN TO HELP WITH SLEEP. SHE IS A MIN ASSIST WITH GAIT BELT AND WALKER. UP TO BATHROOM. DOES OWN CARES. DID HAVE EPISODE OF DIZZINESS WHEN WALKING BACK FROM BATHROOM. RESTING QUIELTY. SLEPT LITTLE OFF AND ON. CALL LIGHT IN REACH AND BED ALARM ON.
[2017-09-20 07:30] VITALS: BP 134/62
[2017-09-20 08:03] VITALS: BP 134/62
[2017-09-20 14:21] LABS: HEMATOCRIT 26.6 % (37.0-47.0); HEMOGLOBIN 8.9 gm/dL (12.0-15.0); MCH 32.4 pg (26.0-34.0); MCHC 33.4 g/dL (28.0-37.0); MCV 97.1 fL (80.0-100.0); MPV 6.7 fl. (7.2-11.1); RBC 2.74 mil/uL (4.20-5.00); RDW-CV 16.2 % (10.5-14.5); WBC 13.8 thou/uL (4.0-11.0)
[2017-09-20 14:42] LABS: ALBUMIN 2.5 g/dL (3.4-5.0); CALCIUM 8.4 mg/dL (8.5-10.1); CREATININE 0.8 mg/dL (0.6-1.3); POTASSIUM 4.2 mmol/L (3.5-5.1); TOTAL BILIRUBIN 1.2 mg/dL (<0.1-1.0); TOTAL PROTEIN 5.9 g/dL (6.4-8.2)
--- NOTE | 2017-09-20 16:42 | NUR ---
AM ASSESSMENT AND VITAL SIGNS COMPLETED DOCUMENTED. PT HAS PARTICIPATED IN ALL THERAPY SESSIONS TODAY. PT's VINOD HAS BEEN HERE AND IS INVOLVED IN HER CARE. PAIN HAS WELL CONTROLLED WITH PRN MEDICATIONS. DRESSING TO RIGHT HIP AND THIGH REMAIN C/D/I. PT DENIES ANY FURTHER DIFFICULTY WITH URINARY RETENTION. FALL PRECAUTIONS AND HOURLY ROUNDING CONTINUE.
--- NOTE | 2017-09-21 05:21 | NUR ---
ASSUMED PT CARE AT 1930. PT ALERT AND ORIENTED X4, POLITE AND COOPERATIVE WITH CARES. PRN PAIN MEDICATIONS GIVEN FOR RIGHT HIP PAIN. MELATONIN AT HS PER PT REQUEST. PT IS MIN ASSIST WITH GAIT BELT AND WALKER. UP TO BATHROOM SEVERAL TIMES OVERNIGHT TO VOID. PT DOES OWN PERICARES. DRESSING TO RIGHT HIP AND THIGH C/D/I. PT'S GRANDDAUGHTER STAYED IN PT ROOM OVERNIGHT. PER PT SHE SLEPT WELL OVERNIGHT. BED ALARM ON FOR SAFETY. PT USES CALL LIGHT APPROPRIATELY. CALL LIGHT AND FREQUENTLY USED ITEMS WITHIN REACH, HOURLY ROUNDING IN PROGESS, WILL CONTINUE TO MONITOR.
[2017-09-21 08:00] VITALS: BP 170/62
--- NOTE | 2017-09-21 11:44 | NUR ---
AM ASSESSMENT AND VITAL SIGNS COMPLETED AND DOCUMENTED. PT HAS BEEN PLEASANT AND COOPERATIVE, WORKS WITH THERAPY SCHEDULED. PT's FAMILY STAY WITH HER AT ALL TIMES BUT DON'T INTERFERE WITH PLAN OF CARE. PT HAS BEEN ALTERNATING OXY IR AND TRAMADOL WITH GOOD RELIEF OF PAIN. DRESSINGS TO RIGHT HIP AND THIGH REMAIN CLEAN, DRY AND INTACT. FALL PRECAUTIONS AND HOURLY ROUNDING CONTINUE.
[2017-09-21 20:29] VITALS: BP 126/41
--- NOTE | 2017-09-22 04:43 | NUR ---
ASSUMED PT CARE AT 1930. PT ALERT AND ORIENTED X4, POLITE AND COOPERATIVE WITH CARES. PRN PAIN MEDICATIONS GIVEN FOR RIGHT HIP PAIN. MELATONIN AT HS PER PT REQUEST. PT IS MIN ASSIST WITH GAIT BELT AND WALKER. UP TO BATHROOM OVERNIGHT TO VOID, STOOL X1 THIS SHIFT. PT DOES OWN PERICARES. DRESSING TO RIGHT HIP AND THIGH C/D/I. PT'S GRANDSON STAYED IN ROOM OVERNIGHT. PT SLEPT WELL OVERNIGHT. BED ALARM ON FOR SAFETY. PT USES CALL LIGHT APPROPRIATELY. CALL LIGHT AND FREQUENTLY USED ITEMS WITHIN REACH. HOURLY ROUNDING IN PROGRESS, WILL CONTINUE TO MONITOR.
[2017-09-22 08:22] VITALS: BP 168/57
--- NOTE | 2017-09-22 16:45 | NUR ---
AM ASSESSMENT AND VITAL SIGNS COMPLETED DOCUMENTED. PT HAS BEEN STAND BY ASSIST WITH AMBULATION, TOILETING, GROOMING AND DRESSING TODAY. PAIN IS WELL CONTROLLED WITH PRN MEDICATIONS AND PT's APPETITE IS GOOD. FAMILY REMAINS VERY INVOLVED WITH HER CARE AND ARE VERY SUPPORTIVE. FALL PRECAUTIONS AND HOURLY ROUNDING CONTINUE.
[2017-09-22 20:52] LABS: URINE BILIRUBIN NEGATIVE (Negative); URINE BLOOD NEGATIVE (Negative); URINE CLARITY CLEAR; URINE COLOR YELLOW; URINE GLUCOSE-RANDOM NEGATIVE (Negative); URINE KETONES NEGATIVE (Negative); URINE LEUKOCYTES NEGATIVE (Negative); URINE NITRITE NEGATIVE (Negative); URINE PROTEIN NEGATIVE (Negative); URINE SPECIFIC GRAVITY 1.015 (1.005-1.030); URINE UROBILINOGEN >= 8.0 E.U./dl (0.2-1.0)
[2017-09-22 21:37] VITALS: BP 131/46
[2017-09-23 04:30] LABS: ABSOLUTE BASOPHILS 0.1 thou/uL (0.0-0.2); ABSOLUTE EOSINOPHILS 0.2 thou/uL (0.0-0.7); ABSOLUTE LYMPHOCYTES 1.3 thou/uL (0.8-5.3); ABSOLUTE MONOCYTES 0.7 thou/uL (0.0-1.2); ABSOLUTE NEUTROPHILS 4.2 thou/uL (1.6-8.1); BASOPHILS 1.1 %; EOSINOPHILS 2.5 %; HEMATOCRIT 28.9 % (37.0-47.0); HEMOGLOBIN 9.7 gm/dL (12.0-15.0); LYMPHOCYTES 19.9 %; MCH 32.6 pg (26.0-34.0); MCHC 33.5 g/dL (28.0-37.0); MCV 97.3 fL (80.0-100.0); MONOCYTES 10.7 %; NUCLEATED RBCS 0 /100WBC; PLATELET COUNT* 389 thou/uL (150-400); POLYS 65.8 %; RBC 2.97 mil/uL (4.20-5.00); RDW-CV 18.4 % (10.5-14.5); WBC 6.4 thou/uL (4.0-11.0)
[2017-09-23 04:32] LABS: ALBUMIN 2.5 g/dL (3.4-5.0); CALCIUM 8.3 mg/dL (8.5-10.1); CREATININE 0.5 mg/dL (0.6-1.3); POTASSIUM 4.6 mmol/L (3.5-5.1); TOTAL BILIRUBIN 1.2 mg/dL (<0.1-1.0); TOTAL PROTEIN 5.4 g/dL (6.4-8.2)
--- NOTE | 2017-09-23 05:53 | NUR ---
ASSUMED CARES AT 1915. PT ALREADY IN BED. ALERT AND ORIENTED. PLEASANT. GRAND DAUGHTER AT BEDSIDE. C/O PAIN TO RIGHT HIP. PAIN MEDS GIVEN PRN. MELATONIN WAS GIVEN. WAS ABLE TO SLEEP FOR SHORT PERIOD. RIGHT HIP AND THIGH HAS MEPILEX THAT ARE INTACT. TAKES PILLS WITHOUT ISSUES. UP TO BATHROOM WITH GAIT BELT AND WALKER. DOES OWN CARES. NEEDS LIFTING ASSIST OF RIGHT LEG INTO BED. USED CALL LIGHT APPROPRIATELY. BED ALARM ON.
[2017-09-23 07:30] VITALS: BP 132/56
[2017-09-23 12:00] VITALS: BP 117/40
[2017-09-23 12:05] VITALS: BP 115/42
[2017-09-23 12:10] VITALS: BP 112/54
--- NOTE | 2017-09-23 17:01 | NUR ---
ASSUMMED CARE OF PT AT 0730, PT TRANSFERS WITH MOD ASSIST SHE NEEDS HELP GETTING LEGS IN AND OUT OF BED, TRANSFERS SBA FROM STAND TO CHAIR OR TOILET, PT TAKING FLUIDS WELL, NEEDS ENCOURAGEMENT TO EAT, PT STATES HAS POOR APETITE, DRESSING TO RIGHT HIP INTACT, MEDICATED FOR RIGHT HIP PAIN PER ORDER, WHEN WORKING WITH OT THIS AM PT BECAME DIZZY AND SLIGHTLY NAUSEATED, BP LOW, NO EMESIS, PT ALSO COMPLAINED OF BACK OF HEAD/NECK PAIN, PT RETURNED TO BED, BP IMPROVED AND PT STATED SHE FELT MUCH BETTER, ORTHO STATIC VS CHECKED WHEN PT GOT UP LATER, LAYING 117/40, SITTING 115/42, STAND 112/54, PHYSICIAN INFORMED ON ROUNDS OF BP, FAMILY CALLED THIS PM AND INFORMED STAFF AND PT THAT HER WAS NOT DOING WELL IN HOSPICE AND MAY BE DYING SOON, PT DID TALK TO ON PHONE AND SAID HER GOODBYE, FAMILY HERE THIS AFTERNOON, HOURLY ROUNDING COMPLETE, ASSESSMENT COMPLETE, WILL CONTINUE TO MONITER.
[2017-09-23 19:47] VITALS: BP 133/41
--- NOTE | 2017-09-24 05:06 | NUR ---
ASSUMED PT CARE AT 1930. PT ALERT AND ORIENTED X4, POLITE AND COOPERATIVE WITH CARES. GRANDDAUGHTER STAYED OVERNIGHT. PT QUIET BUT NOT SHOWING ANY OUTWARD SIGNS OF DISTRESS REGARDING THE PASSING OF HER SATURDAY AFTERNOON. PT C/O RIGHT HIP PAIN, GIVEN OXY IR AND MELATONIN AT HS. PT SLEPT WELL UNTIL UP TO VOID WITH GAIT BELT AND WALKER AT APPROX 0100. PT DOES OWN PERICARES. PT GIVEN PRN ATIVAN AND SLEPT UNTIL 0450. UP TO VOID, BACK TO BED C/O INTENSE RIGHT HIP PAIN. STOOL X1 THIS SHIFT. OXY IR GIVEN. ICE PACK PROVIDED. PT NEEDS LIFTING ASSIST TO GET HER RIGHT LEG INTO BED. USES CALL LIGHT APPROPRIATELY. CALL LIGHT AND FREQUENTLY USED ITEMS WITHIN REACH. HOURLY ROUNDING IN PROGRESS, WILL CONTINUE TO MONITOR.
[2017-09-24 07:37] VITALS: BP 186/61
--- NOTE | 2017-09-24 17:02 | NUR ---
ASSUMMED CARE OF PT AT 0730, PT ALERT AND ORIENTED , FORGETFUL, PT TRANSFERS WITH ASSIST OF 1 GB WALKER CUEING, NEEDS ASSIST TO GET BOTH LEGS IN AND OUT OF BED, PT NEEDS ENCOURAGEMENT TO DRINK AND EAT, PT STATES SHE HAS NO APETITE, PT COMPLAINS OF PAIN IN RIGHT HIP, STATES IT HURTS MORE TODAY, ORDER FOR HIP X/R NOTED, PT MEDICATED PER ORDER FOR PAIN, PARTICIPATED IN ALL THERAPIES, HOURLY ROUNDING COMPLETE, MANY VISITORS HERE THRUOUT DAY, PT TURNED ON SIDE WHEN IN BED, DRESSING TO RIGHT HIP DRY AND INTACT. VOIDS PER TOILET, ASSESSMENT COMPLETE, WILL CONTINUE TO MONITER.
[2017-09-24 19:48] VITALS: BP 114/67
--- NOTE | 2017-09-25 05:04 | NUR ---
ASSUMED PT CARE AT 1930. PT ALERT AND ORIENTED, POLITE AND COOPERATIVE WITH CARES. DAUGHTER STAYED OVERNIGHT. PT UP WITH ASSIST OF ONE, GAIT BELT AND WALKER TO VOID X3 OVERNIGHT. PRN PAIN MEDICATIONS GIVEN FOR RIGHT HIP PAIN. MELATONIN AND OXY IR AT HS, PT SLEPT WELL BETWEEN VOIDS. NO STOOL THIS SHIFT. PT NEEDS LIFTING ASSIST TO GET BOTH LEGS INTO BED. RIGHT LEG PAIN MORE INTENSE THAN PREVIOUS NIGHT, HOWEVER, RIGHT HIP AND PELVIS XRAY ON DAY SHIFT CONFIRM ALIGNMENT EXCELLENT. CALL LIGHT AND FREQUENTLY USED ITEMS WITHIN REACH. USES CALL LIGHT APPROPRIATELY. HOURLY ROUNDING IN PROGRESS, WILL CONTINUE TO MONITOR.
[2017-09-25 07:37] VITALS: BP 119/59
--- NOTE | 2017-09-25 16:20 | NUR ---
SW met with pt and pt family to review team conference summary. Plan for pt to dc home with family support at all times on Wednesday 09/27 with HH services to follow. Pt has needed DME and the DME recommendations. Pt and pt family in agreement with plans. Pt was thankful to be ready and safe to return home at this time because pt 's will be on Saturday. SW to continue to follow to arrange HH services and assist with finalizing safe dc plans.
--- NOTE | 2017-09-25 18:42 | NUR ---
ASSUMED CARE AT 0730 PATIENT ALERT/ORIENTED, PAIN MEDS GIVEN FOR RIGHT HIP PAIN WITH GOOD RELIEF. DRESSING TO RIGHT HIP CLEAN/DRY/INTACT. UP WITH ASSIST OF ONE AND WALKER/GAIT BELT, PARTICPATED IN ALL THERAPIES TODAY, CALL LIGHT IN PLACE, BED/CHAIR ALARMS IN PLACE, TO DINING ROOM FOR LUNCH, FAMILY AT BEDSIDE FOR DINNER, REFUSED TO GO DOWN. PLAN TO BE DISCHARGED HOME ON SATURDAY, CONTINUE WITH CURRENT PLAN OF CARE
[2017-09-25 20:00] VITALS: BP 123/48; BP 136/44
--- NOTE | 2017-09-26 01:33 | NUR ---
ASSUMED CARE @ 1942-09/25-SAT.AWAKE IN BED W/HOB UP.WANTS RIGHT LE UP ON A PILLOW.DONE.BED ALARM PUT ON @ 1942.WANTS 0NLY SIDERAILS X3 UP.SAT IN RECLINER @ 2009 AFTER BRP.CHAIR ALARM PUT ON @ 2009.PRN MIRALAX GIVEN W/ APPLE JUICE @ 2048.SEE PAIN MANAGEMENT @ 2049.PRN MELATONIN 5 MG ORAL GIVEN ALSO @ 2049. HOB UP.BED ALARM PUT ON @ 2057.DAUGHTER STAYING ALL NIGHT.ON HOURLY ROUNDS. 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
[2017-09-26 01:51] LABS: URINE BILIRUBIN NEGATIVE (Negative); URINE BLOOD NEGATIVE (Negative); URINE CLARITY CLEAR; URINE COLOR YELLOW; URINE GLUCOSE-RANDOM NEGATIVE (Negative); URINE KETONES NEGATIVE (Negative); URINE LEUKOCYTES-REFLEX NEGATIVE (Negative); URINE NITRITE-REFLEX NEGATIVE (Negative); URINE PROTEIN NEGATIVE (Negative); URINE SPECIFIC GRAVITY <= 1.005 (1.005-1.030)
[2017-09-26 05:33] LABS: HEMATOCRIT 31.5 % (37.0-47.0); HEMOGLOBIN 10.3 gm/dL (12.0-15.0); MCH 32.1 pg (26.0-34.0); MCHC 32.7 g/dL (28.0-37.0); MCV 98.2 fL (80.0-100.0); RBC 3.21 mil/uL (4.20-5.00); RDW-CV 18.3 % (10.5-14.5); WBC 4.9 thou/uL (4.0-11.0)
--- NOTE | 2017-09-26 05:46 | NUR ---
SLEEPING SINCE 2199.REFUSED HS SNACK.BRP W/ SBA X3.SEE VITAL SIGNS FOR ORTHOSTATIC BP'S TAKEN @ 1999.
[2017-09-26 06:04] LABS: CALCIUM 8.4 mg/dL (8.5-10.1); CREATININE 0.6 mg/dL (0.6-1.3); POTASSIUM 4.3 mmol/L (3.5-5.1)
[2017-09-26 09:19] VITALS: BP 157/52
[2017-09-26 12:43] VITALS: BP 125/50
--- NOTE | 2017-09-26 15:38 | NUR ---
ASSUMED CARE AT 0730, PATIENT ALERT/ORIENTED, PAIN MEDS GIVEN X2 THIS SHIFT WITH GOOD RESULTS. UP WITH ASSIST OF ONE AND WALKER/GAIT BELT, PARTICIPATED IN ALL THERAPIES TODAY, DID NOT GO TO DINING ROOM FOR MEALS, FAMILY AT BEDSIDE. HOURLY ROUNDING COMPLETED, BED/CHAIR ALARMS IN PLACE, CALL LIGHT IN REACH. LOW BLOOD PRESSURE THIS MORNING WHEN WORKING WITH OT, RETURNED TO ROOM AND RESTED IN BED, B/P RETURNED TO NORMAL, WILL CONTINUE TO MONITOR. TO BE DISCHARGED TOMORROW.
--- NOTE | 2017-09-26 16:41 | NUR ---
SW spoke with pt and pt dtr about pt dc tomorrow and discussed HH services and HH agency preference. Pt and pt dtr preference for [facility]. SW sent initial referral with orders to follow upon dc day and SW will continue to follow to assist with finalizing safe dc plan tomorrow.
[2017-09-26 19:58] VITALS: BP 94/37
[2017-09-27] VITALS (11 sets, daily range): BP systolic 84–148; BP diastolic 40–50
--- NOTE | 2017-09-27 01:16 | NUR ---
ASSUMED CARE @ 1921-09/26-.SITS IN RECLINER W/ CHAIR ALARM ALREADY ON.OLDEST DAUGHTER STAYING ALL NIGHT.BRP W/ SBA W/ WBAT RIGHT LE.WEARS PULL UPS.SBA FOR TOILETING.MIN ASSIST FOR BED TRANSFER.ASSIST LIFTING RIGHT LE INTO & OUT OF BED.HOB UP.HEELS OFF BED @ 2009.BED ALARM PUT ON @ 2009.SEE PAIN MANAGEMENT @ 2011 W/ PRN MELATONIN 5 MG ORAL.ON HOURLY ROUNDS.PRESCRIPTION CLERK LENSES DOING ODD HOUR ROUNDS.
--- NOTE | 2017-09-27 05:38 | NUR ---
SLEEPING SINCE 2099.BRP W/ SBA X3.REFUSED HS SNACK.SEE ORTHOSTATIC BP'S TAKEN @ 0100.FOR DISCHARGE TODAY-09/27-SATURDAY.
--- NOTE | 2017-09-27 10:56 | NUR ---
Pt to dc home with family today, Wednesday 09/27. [facility] to follow per family preference. [phone]. [facility] faxed referral and final orders/med list. [facility] ordered RW through [facility] to be delivered to pt room prior to pt dc.
[2017-09-27] MEDS ORDERED: ACETAMINOPHEN325 M3 PO (13:07)
[2017-09-27] MEDS ORDERED: MELATONIN5 M1 PO (13:11)
[2017-09-27] MEDS ORDERED: NORVASC5 MG PO (13:22)
--- NOTE | 2017-09-27 16:35 | NUR ---
ASSUMED CARE AT 0730. ALERT ORIENTED PLEASANT COOPERATIVE. HX OF RT. HIP FX S/P NAILING. TRANSFERS WITH SBA G BELT WALKER AND AMBULATES TO BR. WORKING O.T. AND TAKING A SHOWER STATED EXPERIENCING SOME PAIN CHEST . VS WERE 95/42 P 84 SITTING STATES SHE IS VERY FATIGUED AFTER SHOWER ALSO, NORVASC AND METOPROLOL WERE HELD DUE TO LOW BP. ADMINISTERED PRN PAIN MED 1 TAB FOR HIP PAIN WITH RELIEF STATED. VS WERE RECHECKED AT 1000 BP 122/[address] LEIGH AWARE AND WROTE PARAMETERS FOR MEDS. BP AT NOON 123/47 P 93 SITTING STANDING 84/44 P 105. HAS PARTICIPATED IN THERAPIES THROUGHOUT THE DAY. D/C ORDERS WERE WRITTEN AND GIVEN TO PT. AND DAUGHTER VERBALIZED UNDERSTANDING ALLOWED TIME FOR QUESTIONS. SCRIPTS GIVEN AND ALL BELONGINGS SENT HOME WITH PT. DISCHARGED WITH DAUGHTER PER W/C AND PRIVATE CAR TO HOME AT 1430.
--- NOTE | 2017-10-09 14:12 | H ---
[address] [address] HISTORY AND PHYSICAL Name: RAEGAN LEON Room: [address] IN M.R.#: [id number] Admission: 09/12/17 Attend Phys: Sally Cuevas DO Discharge: 09/27/17 Date of : 34 Report #: [id number] THIS REPORT FOR: //name// CC: Sally Halehen Yesi DATE OF SERVICE: 09/12/2017 HISTORY OF PRESENT ILLNESS: This is an 87-year-old female who had a fall from standing height at her home setting onto the right side, sustaining a right femur fracture. She did undergo closed reduction with cephalomedullary nailing on 09/08/2017. She did have some postoperative confusion and encephalopathy, but that is improving. She does have needs in physical and occupational therapy as well as speech and language pathology. There has been no significant change since preadmission screening. Previous level of function was independent with activities of daily living. Current level of function is minimum to moderate assistance of 1-2 depending on therapy, activity and time of day. She is dependent with her toileting. She has mild cognitive impairment including comprehension, social interaction, problem solving and memory. Her estimated length of stay is 12-14 days with discharge disposition to the home setting. She does have a spouse that can aid if needed. PAST MEDICAL HISTORY: Hypertension, hyperlipidemia, coronary artery disease, anemia with hemoglobin of 8.6, and . PAST SURGICAL HISTORY: ORIF of the left ankle and a tonsillectomy. ALLERGIES: No known drug allergies. SOCIAL HISTORY: Former tobacco smoker. REVIEW OF SYSTEMS: A 14-point review of systems is done and is negative except as mentioned in the HPI, specifically no fever, chest pain, shortness of breath, abdominal pain, or distention. PHYSICAL EXAMINATION: GENERAL: Alert, oriented, in no apparent distress. VITAL SIGNS: Reviewed and are stable. HEENT: Head atraumatic, normocephalic. Pupils are equal, round, and reactive. ABDOMEN: Soft, nontender, nondistended. NEUROLOGIC: Cranial nerves 2-12 are grossly intact with no focal neuro deficits, 5/5 strength in the bilateral upper and lower extremities. SKIN: Warm and dry. No rashes or lesions noted. ASSESSMENT: 1. Right[place] [address] HISTORY AND PHYSICAL Name: RAEGAN LEON Room: [address] IN [facility].#: [id number] Admission: 09/12/17 Attend Phys: Sally Cuevas DO Discharge: 09/27/17 Date of : 34 Report #: [id number] 2. Multiple medical comorbidities requiring daily medical care. PLAN: 1. Admission to inpatient rehabilitation. 2. PT, OT, speech, language, case management, nursing and HIMS to make evaluations and recommendations. 3. Plan of care is pending. 4. We will team her weekly. 5. Medications were reviewed, reconciled by myself and are available in the MAR. <ELECTRONICALLY SIGNED> By: Sally Cuevas DO 10/09/17 1412 1830 [id number] Cuevas DO /nt
--- NOTE | 2017-10-09 14:12 | D ---
[address] [address] DISCHARGE SUMMARY Name: RAEGAN LEON Room: [facility] IN M.R.#: [id number] Admission: 09/12/17 Attend Phys: Sally Cuevas DO Discharge: 09/27/17 Date of : 34 Report #: [id number] THIS REPORT FOR: //name// CC: Sally Cuevas Brad Key DISCHARGE DIAGNOSIS: Right hip fracture. DISCHARGE DISPOSITION: To the home setting with supportive family. The patient did approach goals prior to discharge, did maintain hip precautions. She will follow with home health, PT, OT and nursing. She will follow with her primary care physician within 1 week and her surgeon within 1-2 weeks. Notifications for physician were given. She will maintain a regular diet. Monitor weight gain and maintain hip precautions as well as fall precautions. MEDICATIONS: Reviewed and reconciled by myself and are available in the MAR. Prescriptions needed for discharge were given for one month's supply. DISCHARGE PHYSICAL EXAMINATION: GENERAL: Alert, oriented, in no apparent distress. VITAL SIGNS: Reviewed and are stable. HEENT: Head is atraumatic and normocephalic. Pupils are equal, round, reactive. ABDOMEN: Soft, nontender, nondistended. NEUROLOGIC: Cranial nerves 2-12 are grossly intact. No focal neuro deficits, 5/5 strength in the bilateral upper and lower extremities. SKIN: Warm and dry. No rashes or lesions noted. <ELECTRONICALLY SIGNED> By: Sally Cuevas DO 10/09/17 1412 1301 [id number] Cuevas DO /nt
--- NOTE | 2017-10-09 14:12 | PLAN ---
[address] [address] REHAB UNIT PLAN OF CARE Name: RAEGAN LEON Room: [address] IN M.R.#: [id number] Admission: 09/12/17 Attend Phys: Sally Cuevas DO Discharge: 09/27/17 Date of : 32 Report #: [id number] THIS REPORT FOR: //name// CC: Sally Key OVERALL PLAN OF CARE This is an 87-year-old female, status post acute hospitalization beginning on 09/08/2017 after tripping and falling at home from a standing height. She did sustain a right hip fracture and underwent closed reduction and cephalomedullary nailing on the . She did have some postoperative confusion and encephalopathy that has been improving. She has needs in physical and occupational therapy as well as mild cognitive impairment with comprehension, expression, social interaction and problem solving. MEDICAL PROGNOSIS: Good. REHABILITATION PROGNOSIS: Good. Estimated length of stay is 14-16 days with discharge disposition to the home setting with supportive family. Previous level of function was independent with activities of daily living. Current level of function is [id number] assistance of 1-2 depending on therapy, activity and time of day. She is dependent for toileting at this time. Physical therapy will see the patient 60-90 minutes per day, 5 days per week, working on upper and lower strength, balance, coordination, navigation. Occupational therapy will work with the patient 60-90 minutes per day, 5 days per week, working on upper and lower body strength, balance, coordination, navigation, bathing, dressing and toileting. Speech language pathology will work with the patient 30-90 minutes per day, 5 days per week, working on cognitive impairment, memory, social interaction and expression. This is an overall plan of care, may change from time to time. We will team weekly and make changes to plan of care as needed. <ELECTRONICALLY SIGNED> By: Sally Cuevas DO 10/09/17 1412 1825 [id number] Cuevas DO /nt
== END 2017-09-27 14:30 | disposition home health service (06) | DRG 535 ==
LOC: M.REH 13:21
PROVIDERS: Internal Medicine; ADMIT Physical Medicine & Rehabilitation
DX: S72.141A Displaced intertrochanteric fracture of right femur, initial encounter for closed fracture (principal); G93.40 Encephalopathy, unspecified; E87.1 Hypo-osmolality and hyponatremia; D62 Acute posthemorrhagic anemia; N39.0 Urinary tract infection, site not specified; R41.0 Disorientation, unspecified; G31.84 Mild cognitive impairment of uncertain or unknown etiology; I10 Essential (primary) hypertension; E78.5 Hyperlipidemia, unspecified; I25.10 Atherosclerotic heart disease of native coronary artery without angina pectoris; R07.9 Chest pain, unspecified; K59.00 Constipation, unspecified; M81.0 Age-related osteoporosis without current pathological fracture; R26.9 Unspecified abnormalities of gait and mobility; D72.829 Elevated white blood cell count, unspecified; W17.89XA Other fall from one level to another, initial encounter; Y93.89 Activity, other specified; Y92.098 Other place in other non-institutional residence as the place of occurrence of the external cause; Y99.8 Other external cause status; Z87.891 Personal history of nicotine dependence; Z88.6 Allergy status to analgesic agent; Z90.12 Acquired absence of left breast and nipple; Z79.82 Long term (current) use of aspirin; Z79.899 Other long term (current) drug therapy

== ENCOUNTER 2019-10-23 10:18 | Inpatient (IN) | payer MEDICARE, OTHER ==
[~2019-10-23] VITALS: Ht 167.6 cm; Wt 59.4 kg
[~2019-10-23 10:18] MED LIST changes: +ACETAMINOPHEN325 M3 PO; +COLACE100 MG PO; +ENOXAPARIN30 MG/0.1 SUBQ; +MELATONIN5 M1 PO; +MILK OF MA2400 MG/10 PO; +NORVASC5 MG PO; +OXYCODONE HCL 55 MG PO; +TRAMADOL 50 MG50 MG PO
[2019-10-23 10:25] VITALS: BP 111/34
[2019-10-23 10:44] LABS: ABSOLUTE BASOPHILS 0.1 thou/uL (0.0-0.2); ABSOLUTE LYMPHOCYTES 1.4 thou/uL (0.8-5.3); ABSOLUTE MONOCYTES 0.9 thou/uL (0.0-1.2); ABSOLUTE NEUTROPHILS 4.7 thou/uL (1.6-8.1); BASOPHILS 0.9 %; EOSINOPHILS 0.6 %; HEMATOCRIT 40.5 % (37.0-47.0); HEMOGLOBIN 13.8 gm/dL (12.0-15.0); LYMPHOCYTES 19.8 %; MCHC 34.1 g/dL (28.0-37.0); MONOCYTES 12.9 %; MPV 7.9 fl. (7.2-11.1); NUCLEATED RBCS 0 /100WBC; PLATELET COUNT* 214 thou/uL (150-400); POLYS 65.8 %; RBC 4.45 mil/uL (4.20-5.00); RDW-CV 13.8 % (10.5-14.5); WBC 7.2 thou/uL (4.0-11.0)
[2019-10-23 10:53] LABS: CALCIUM 8.8 mg/dL (8.5-10.1); POTASSIUM 4.8 mmol/L (3.5-5.1)
[2019-10-23 10:58] LABS: ALBUMIN 3.3 g/dL (3.4-5.0); TOTAL BILIRUBIN 0.7 mg/dL (<0.1-1.0); TOTAL PROTEIN 7.1 g/dL (6.4-8.2)
--- NOTE | 2019-10-23 14:48 | NUR ---
ECHO COMPLETED AT BEDSIDE
--- NOTE | 2019-10-23 15:49 | 2DMMODE ---
[place] [address] 2 D/M-MODE ECHOCARDIOGRAM Name: RAEGAN LEON Room: [place] [address] ADM IN .R.#: [id number] Admission: 10/23/19 Attend Phys: [place] Discharge: Date of : 34 Date of Service: 10/23/19 1548 Report #: [id number] THIS REPORT FOR: cc: Brad Key MD,Brad Ferrari,Samuel Crawley MD [facility] ~ APPROVED REPORT Study performed: 10/23/2019 14:41:27 EXAM: Comprehensive 2D, Doppler, and color-flow Echocardiogram Patient Location: In-Patient Room #: er Status: routine BSA: 1.69 HR: 63 bpm BP: 141/55 mmHg Rhythm: NSR Other Information Study Quality: Good Indications Murmur 2D Dimensions IVSd: 13.50 (7-11mm) LVOT Diam: 19.90 (18-24mm) LVDd: 30.83 mm PWd: 8.21 (7-11mm) Ascending Ao: 24.06 (22-36mm) LVDs: 22.00 (25-40mm) Aortic Root: 28.97 mm Volumes Left Atrial Volume (Systole) LA ESV Index: 36.50 mL/m2 Aortic Valve AoV Peak Billy.: 1.43 m/s AO Peak Gr.: 8.24 mmHg LVOT Max P.96 mmHg AO Mean Gr.: 5.35 mmHg LVOT Mean P.28 mmHg LVOT Max V: 1.32 m/s AO V2 VTI: 31.01 cm LVOT Mean V: 0.98 m/s KENROY (VTI): 2.90 cm2 LVOT V1 VTI: 28.90 [place] [address] 2 D/M-MODE ECHOCARDIOGRAM Name: RAEGAN LEON Room: [address] IN [facility]#: [id number] Admission: 10/23/19 Attend Phys: [place] Discharge: Date of : 32 Date of Service: 10/23/19 1548 Report #: [id number] Mitral Valve MV Mean Gr.: 2.73 mmHg E/A Ratio: 0.51 MV Decel. Time: 355.36 ms MV E Max Billy.: 0.61 m/s MV PHT: 103.06 ms MVA (PHT): 2.13 cm2 TDI E/Lateral E': 12.20 E/Medial E': 10.17 Medial E' Billy.: 0.06 m/s Lateral E' Billy.: 0.05 m/s Pulmonary Valve PV Peak Billy.: 1.06 m/s PV Peak Gr.: 4.50 mmHg Tricuspid Valve RAP Estimate: 5.00 mmHg TR Peak Gr.: 23.27 mmHg RVSP: 28.00 mmHg PA Pressure: 28.00 mmHg Left Ventricle The left ventricle is normal size. There is normal LV segmental wall motion. Mild concentric left ventricular hypertrophy. Left ventricular systolic function is normal. The left ventricular ejection fraction is within the normal range. LVEF is 65-70%. Grade I - abnormal relaxation pattern. Right Ventricle The right ventricle is normal size. The right ventricular systolic function is normal. Atria Left atrium is mildly dilated. The right atrium size is normal. Aortic Valve Moderate aortic valve sclerosis. Trace aortic regurgitation. There is no aortic valvular stenosis. Mitral Valve The mitral valve is normal in structure. There is no mitral valve regurgitation noted. No evidence of mitral valve stenosis. Tricuspid Valve The tricuspid valve is normal in structure. Mild tricuspid regurgitation. estimated pa pressure 30 [place] [address] 2 D/M-MODE ECHOCARDIOGRAM Name: RAEGAN LEON Room: [address] IN [facility]#: [id number] Admission: 10/23/19 Attend Phys: [place] Discharge: Date of : 34 Date of Service: 10/23/19 1548 Report #: [id number] Pulmonic Valve The pulmonary valve is normal in structure. Trace pulmonic regurgitation. Great Vessels The aortic root is normal in size. IVC is normal in size and collapses >50% with inspiration. Pericardium There is no pericardial effusion. <Conclusion> Mild concentric left ventricular hypertrophy. LVEF is 65-70%. Left atrium is mildly dilated. Moderate aortic valve sclerosis. <ELECTRONICALLY SIGNED> By: Samuel Ferrari MD, [facility] 10/23/19 1548 1548 1548 Samuel Ferrari MD, FACC /INF
--- NOTE | 2019-10-23 16:40 | NUR ---
ER ADMIT TO 219 TELEPHON REPORT GIVEN PRIOR TO ARRIVAL PATIENT TO VIA CART ASSIST OF 1 TO BED ORIENTED TO AND CALL LIGHT INSTRUCTED NOT TO GET UP WITHOUT ASSIST BED ALALRM SET FAMILY AT BEDSIDE PATIENT ADMIT TO R KNEE PAIN AT 11/23 BUT REFUSED PAIN MEDICATION AT THIS TIME WILL CONTINUE TO MONITOR
[2019-10-23 16:45] VITALS: BP 121/84
[2019-10-23 16:47] VITALS: BP 124/69
[2019-10-23 20:00] VITALS: BP 89/45
[2019-10-23 23:47] VITALS: BP 89/45
[2019-10-24 04:04] VITALS: BP 168/57
[2019-10-24 04:57] LABS: HEMATOCRIT 40.4 % (37.0-47.0); HEMOGLOBIN 13.6 gm/dL (12.0-15.0); MCH 30.9 pg (26.0-34.0); MCHC 33.6 g/dL (28.0-37.0); MCV 91.9 fL (80.0-100.0); MPV 8.2 fl. (7.2-11.1); RBC 4.4 mil/uL (4.20-5.00); WBC 5.5 thou/uL (4.0-11.0)
[2019-10-24 05:15] LABS: ANION GAP 8 mmol/L (7-16); BUN 15 mg/dL (7-18); CHLORIDE 104 mmol/L (98-107); CHOLESTEROL 129 mg/dL (<200); CO2 27 mmol/L (21-32); CREATININE 0.7 mg/dL (0.6-1.3); GLUCOSE 94 mg/dL (70-99); HDL CHOLESTEROL 51 mg/dL (>40); LDL CHOLESTEROL 67 mg/dL (<100); POTASSIUM 4.1 mmol/L (3.5-5.1); SODIUM 139 mmol/L (136-145); TC:HDL 2.5 Ratio (Not establshd); TRIGLYCERIDE 57 mg/dL (<150); TROPONIN-I LEVEL <0.06 ng/mL (<0.06); VLDL 11 mg/dL (<40)
[2019-10-24 05:18] LABS: SERUM ASSESSMENT CLEAR
[2019-10-24 08:00] VITALS: BP 107/85
--- NOTE | 2019-10-24 08:30 | NUR ---
ASSUMED PATIENT CARE AT 1900. ASSESSMENT COMPLETED CHARTED. 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 HOURLY ROUNDING IN PLACE FOR PATIENT SAFETY. CLWR.
[2019-10-24 12:15] VITALS: BP 137/65
--- NOTE | 2019-10-24 12:18 | NUR ---
.ASSUMED CARE OF PATIENT THIS AM AT 0730. PATIENT IS ALERT AND ORIENTED X 4. SHE DENIES PAIN AND DISCOMFORT. DR THOMAS IN TO ROUND AND MEDICATION CHANGES MADE. TELE SHOWS SR WITH PVCS AND A BBB. PATIENT IS TAKING HER DIET WELL. PATIENT IS ANTICIPATING DISCHARGE TODAY. SHE REFUSED HER ORDERED MEDICATIONS SHE SAYS THAT SHE TAKES THEM AT NIGHT WHEN SHE IS AT HOME. WILL CONTINUE TO MONITOR AT THIS TIME. NO FALLS OR INJURY
--- NOTE | 2019-10-24 13:19 | CON ---
[address] [address] CONSULTATION Name: MACHO LEONJL Vann Room: [address] IN M.Ap.#: [id number] Admission: 10/23/19 Attend Phys: Urbano Reina, Discharge: Date of : 32 Report #: [id number] THIS REPORT FOR: //name// cc: Brad Key MD, Stephen R. MD ~ THIS REPORT FOR: //name// CC: Brad Reina DATE OF SERVICE: 10/23/2019 CARDIOLOGY CONSULTATION HISTORY OF PRESENT ILLNESS: The patient is an 89-year-old single white female who I was asked to see in the hospital today after she had a syncopal spell. The history is obtained from the old records, the patient and her daughter who is present. The patient apparently has a history of coronary artery disease. According to the daughter, she had a heart catheterization at [facility] years ago and was found to have coronary artery disease that was not amenable to stenting. She currently is followed by a tube trailer filler at [facility]. She has had a remote history of syncope. She stays fairly active at this time. She was last here at [facility] in 09/2017, 2 years ago when she had a hip fracture requiring surgery. She was doing well until yesterday. She was at a store when she went to bathroom. When she came out of the bathroom, she felt lightheaded and had a brief loss of consciousness. She was held up by a family member. She had another brief loss of consciousness and laid down ground. She was placed in a wheelchair and sent home. However, the family decided to come to the hospital today to be evaluated. She has had no further syncope. She denied any recent lightheadedness, vomiting, diarrhea, bleeding. She denied any recent chest pain, shortness of breath, or palpitations. PAST MEDICAL HISTORY: Significant mastectomy following cancer. She had a hip surgery. She has a history of hypertension, hyperlipidemia. MEDICATIONS: At home consist of aspirin, losartan, Imdur, Crestor, metoprolol and amlodipine. ALLERGIES: SHE HAS INTOLERANCE TO HYDROCODONE. FAMILY HISTORY: Father with heart disease. SOCIAL HISTORY: She is , lives with daughter in [place]. No [place] [address] CONSULTATION Name: RAEGAN LEON Room: [address]#: [id number] Admission: 10/23/19 Attend Phys: Urbano Reina, Discharge: Date of : 32 Report #: [id number] REVIEW OF SYSTEMS: She has had no history of stroke, asthma, liver disease, kidney disease. She does have incontinence. She wears glasses. No psychiatric illness. No chronic skin condition. PHYSICAL EXAMINATION: GENERAL: Revealed an elderly female, who appeared in no distress. VITAL SIGNS: In the Emergency Room, she had a blood pressure of 130/60, pulse 60. She is afebrile. HEENT: She was anicteric. Conjunctivae pink. Mucous membranes moist. NECK: Veins nondistended. No carotid bruits. Neck was supple. CHEST: Clear to auscultation. CARDIOVASCULAR: Regular rate and rhythm, grade 2 systolic ejection murmur. ABDOMEN: Soft. EXTREMITIES: Had no pitting edema. SKIN: Cool and dry. NEUROLOGIC: Nonfocal. RADIOLOGICAL DATA: ECG shows a sinus rhythm with a left bundle branch block. Her workup in the Emergency Room so far, she had a portable chest x-ray done last night that showed normal heart size and clear lung quintero. She had a CT scan of the head done in 2017 here at [facility] that showed the following results, there was atrophy, small vessel disease, no acute abnormality. LABORATORY DATA: In the Emergency Room, sodium 135, BUN 17, creatinine 1.0. Liver function studies were normal. Troponin 0.06. BNP 1401. White blood cell count 7.2, hemoglobin 13.8. IMPRESSION AND RECOMMENDATIONS: 1. Syncope, possible vasovagal. I would consider discharging the patient with an event recorder. 2. Coronary artery disease. No recent angina. The patient is on nitrates, beta georgi and aspirin. 3. Hypertension. Blood pressure appears controlled on an ARB, beta georgi, calcium georgi. 4. Hyperlipidemia. The patient is on a statin drug. 5. History of breast cancer. 6. Left bundle branch block. <ELECTRONICALLY SIGNED> By: Samuel Ferrari MD, FACC 10/24/19 1319 1412 [id number] Ferrari MD, FACC /nt
[2019-10-24 15:55] VITALS: BP 104/85
[2019-10-24 16:16] VITALS: BP 104/85
[2019-10-24 17:22] VITALS: BP 104/85
--- NOTE | 2019-10-28 13:55 | EKG ---
[place] [address] ELECTROCARDIOGRAM REPORT Name: EDWARDRAEGAN Vann Room: [address] IN R#: [id number] Admission: 10/23/19 Attend Phys: [place] Discharge: 10/24/19 Date of : 34 Date of Service: 10/23/19 1028 Report #: [id number] THIS REPORT FOR: cc: Brad Key MD,Brad Ferrari,Samuel Crawley MD [facility] ~ THIS REPORT FOR: //name// [facility] ED Test Date: 2019-10-23 Test Time: 10:28:23 Pat Name: RAEGAN LEON Department: Room: [facility] Gender: F Compensation And Hris Analyst: RADHA : 1930 Requested By: Magno Olvera Order Number: [id number] MD: Samuel Ferrari Measurements Intervals [place] Rate: 64 P: 10 PA: 194 QRS: 11 QRSD: 137 T: 197 QT: 430 QTc: 444 Interpretive Statements Sinus rhythm Ventricular premature complex Left bundle branch block Compared to ECG 09/17/2017 09:33:03 Ventricular premature complex(es) now present Electronically Signed On 10-23-2019 15:16:24 EMPLOYMENT PROGRAM REPRESENTATIVE by Samuel Ferrari [email or web address] <ELECTRONICALLY SIGNED> By: Samuel Ferrari MD, [facility] 10/23/19 1516 1028 1028 Samuel Ferrari MD, [facility] /EPI
== END 2019-10-24 17:50 | disposition home or self-care (01) | DRG 312 ==
LOC: M.ERS 10:18 → M.TBA-ER 12:33 → M.2W 17:12
PROVIDERS: Emergency Medicine Emergency Medical Services; Internal Medicine Cardiovascular Disease; ADMIT Family Medicine
DX: R55 Syncope and collapse (principal); I25.10 Atherosclerotic heart disease of native coronary artery without angina pectoris; I10 Essential (primary) hypertension; E78.5 Hyperlipidemia, unspecified; I44.7 Left bundle-branch block, unspecified; M17.11 Unilateral primary osteoarthritis, right knee; R07.89 Other chest pain; Z90.89 Acquired absence of other organs; Z90.12 Acquired absence of left breast and nipple; Z79.82 Long term (current) use of aspirin; Z79.899 Other long term (current) drug therapy; Z88.5 Allergy status to narcotic agent; Z82.49 Family history of ischemic heart disease and other diseases of the circulatory system